=== PATIENT | male | born 1940 | race Caucasian/White ===

== ENCOUNTER 2022-09-08 14:10 | Observation (INO) | payer MEDICARE, OTHER ==
[2022-09-08] MEDS ORDERED: Sodium Chloride 0.9% 1000 ML 1,000 ML IV STA (14:46)
[2022-09-08] MEDS ORDERED: FEVERALL 650 MG PR ONE (14:49)
[2022-09-08] MEDS ORDERED: FEVERALL 650 MG ONE (14:51)
[2022-09-08] MEDS ORDERED: Sodium Chloride 0.9% 1000 ML 1,000 ML ONE (14:51)
[2022-09-08 14:55] LABS: Absolute Neutrophil Ct (ANC) 5.63 x10^3/uL (1.4-6.9); Basophil (Absolute #) 0.04 x10^3/uL (0-0.4); Eosinophil % 0.1 % (0.00-5.0); Eosinophil (Absolute #) 0.01 x10^3/uL (0-0.5); Hematocrit 44.6 % (42-50); Hemoglobin 14.8 g/dL (12.5-18.0); Lymphocyte (Absolute #) 1.05 x10^3/uL (1.0-4.6); Lymphocytes % 13.8 % (24.0-44.0); Mean Cell Volume 91.2 fL (78-100); Mean Corpuscular Hemoglobin 30.3 pg (26-32); Mean Corpuscular Hgb Concent. 33.2 g/dL (32-36); Mean Platelet Volume 10.2 fL (7.5-11.0); Monocyte (Absolute #) 0.81 x10^3/uL (0.0-1.3); Monocytes % 10.7 % (0.0-12.0); Neutrophil % 74.2 % (36.0-66.0); Platelet Count 154 x10^3/uL (150-450); Red Blood Count 4.89 x10^6/uL (4.1-5.6); Red Cell Distribution Width 12.1 % (11.5-14.0); White Blood Count 7.6 x10^3/uL (4.0-10.5)
--- NOTE | 2022-09-08 14:57 | ERPHSYRPT ---
- History of Present Illness Time Seen by Provider: 09/08/22 14:52 Source: patient Exam Limitations: no limitations Patient Subjective Stated Complaint: Per EMS patient had confusion and fever. Triage Nursing Assessment: Patient is alert to self only. Patient is calm, but confused. Patient heart rhythm sinus, heart sounds strong. Patients skin WDI, No shortness of breath, barrel chest. Bilateral bases diminished. Bilateral pulses +2 Physician History: Patient is an 82-year-old male presents to our ED via EMS for evaluation of altered mental status and fever. Symptoms were observed today. Patient is alert and responsive. Patient has no specific complaints. No chest pain or shortness of breath. No photophobia no neck pain no headache. No meningeal signs no nausea vomiting or diaphoresis. Symptoms are mild to moderate in intensity. No specific worsening improving factors. Patient voices no other complaints or concerns at this time. Portions of this note were created with voice recognition technology. There may be grammatical, spelling, punctuation or sound alike errors Timing/Duration: today Severity: moderate Modifying Factors: Improves With: nothing Associated Symptoms: denies symptoms Allergies/Adverse Reactions: No Known Drug Allergies Allergy (Unverified 09/08/22 14:38) Home Medications: Lansoprazole 30 mg PO BID 09/08/22 [History] Losartan/Hydrochlorothiazide [Hyzaar 50-12.5 Tablet] 1 tab PO DAILY 09/08/22 [History] Mirtazapine 45 mg PO HS 09/08/22 [History] Hx Tetanus, Diphtheria Vaccination/Date Given: No Hx Influenza Vaccination/Date Given: No Hx Pneumococcal Vaccination/Date Given: No Immunizations Up to Date: No Travel Risk - International Travel Have you traveled outside of the country in past 3 weeks: No - Coronavirus Screening Are you exhibiting any of the following symptoms?: Yes Symptoms: Fever Close contact with a COVID-19 positive Pt in past 14-21 Days: No - Vaccine Status Have you recieved a Covid-19 vaccination: No - Review of Systems Constitutional: No Symptoms, No Fever, No Chills Eyes: No Symptoms Ears, Nose, & Throat: No Symptoms Respiratory: No Symptoms, No Cough, No Dyspnea Cardiac: No Symptoms, No Chest Pain, No Edema, No Syncope Abdominal/Gastrointestinal: No Symptoms, No Abdominal Pain, No Nausea, No Vomiting, No Diarrhea Genitourinary Symptoms: No Symptoms, No Dysuria Musculoskeletal: No Symptoms, No Back Pain, No Neck Pain Skin: No Symptoms, No Rash Neurological: No Symptoms, No Dizziness, No Focal Weakness, No Sensory Changes Psychological: No Symptoms Endocrine: No Symptoms Hematologic/Lymphatic: No Symptoms Immunological/Allergic: No Symptoms All Other Systems: Reviewed and Negative - Past Medical History Pertinent Past Medical History: No (Poor Historian) Cardiac History: Hypertension - Past Surgical History Past Surgical History: No ([place], poor historian) Other Surgical History: Patient unable to communicate history. - Social History Smoking Status: Former smoker Drug Use: none Patient Lives Alone: No (lives with spouse.) - Nursing Vital Signs Nursing Vital Signs: Initial Vital Signs Temperature 103.1 F 09/08/22 14:18 Pulse Rate 90 09/08/22 14:18 Respiratory Rate 23 09/08/22 14:18 Blood Pressure 111/71 09/08/22 14:18 O2 Sat by Pulse Oximetry 93 L 09/08/22 14:18 Pain Scale Pain Intensity 0 - Physical Exam General Appearance: no apparent distress, alert, other (Patient appears somewhat confused answering inconsistently) Eye Exam: PERRL/EOMI, eyes nml inspection Ears, Nose, Throat Exam: normal ENT inspection, TMs normal, pharynx normal, moist mucous membranes Neck Exam: normal inspection, non-tender, supple, full range of motion Respiratory Exam: normal breath sounds, lungs clear, airway intact, No respiratory distress Cardiovascular Exam: regular rate/rhythm, normal heart sounds, normal peripheral pulses Gastrointestinal/Abdomen Exam: soft, normal bowel sounds, No tenderness, No mass Back Exam: normal inspection, normal range of motion, No CVA tenderness, No vertebral tenderness Extremity Exam: normal inspection, normal range of motion, pelvis stable Neurologic Exam: alert, oriented x 3, cooperative, normal mood/affect, nml cerebellar function, nml station & gait, sensation nml, No motor deficits Skin Exam: normal color, warm, dry, No rash Lymphatic Exam: No adenopathy SpO2 Interpretation: normal SpO2: 93 O2 Delivery: Room Air - Course Nursing assessment & vital signs reviewed: Yes - Radiology Exams Chest X-ray Interpretation: Teleradiologist Report (Lung granuloma, hiatal hernia otherwise negative chest x-ray with chronic features) - CT Exams Head CT Interpretation: Tele-radiologist Report (Global atrophy edema artifact from scalp shrapnel) Ordered Tests: Active Orders 24 hr Category Date Time Status Pharmacy Technician Assistant STAT Care 09/08/22 14:43 Active Catheter-Ashton Joshi STAT Care 09/08/22 14:41 Active IV Insertion STAT Care 09/08/22 14:41 Active IV Insertion-2nd Peripheral STAT Care 09/08/22 14:43 Active Oxygen-ED Only Nasal Cannula 2 lpm Care 09/08/22 14:57 Active Pulse Oximetry (ED) STAT Care 09/08/22 14:46 Active CHEST 1 VIEW (PORTABLE) Stat Exams 09/08/22 14:42 Completed HEAD WITHOUT CONTRAST [CT] Stat Exams 09/08/22 14:47 Completed BLOOD CULTURE Stat Lab 09/08/22 14:26 Received CBC W DIFF Stat Lab 09/08/22 14:20 Completed CK-Creatinine Phosphokinase Stat Lab 09/08/22 14:20 Completed CMP Stat Lab 09/08/22 14:20 Completed CULTURE,URINE Stat Lab 09/08/22 14:45 Received Lactic Acid Stat Lab 09/08/22 14:55 Completed UA W/RFX CULTURE Stat Lab 09/08/22 14:45 Completed Transfer Order Routine Transfer 09/08/22 Ordered Medication Summary Discontinued Medications Generic Name Dose Route Start Last Admin Trade Name Freq PRN Reason Stop Dose Admin Acetaminophen 975 mg 09/08/22 14:49 09/08/22 14:51 Acetaminophen 650 Mg Supp.Rect NJ 09/08/22 14:50 975 mg STAT ONE Administration Acetaminophen Confirm 09/08/22 14:51 Acetaminophen 650 Mg Supp.Rect Administered 09/08/22 14:52 Dose 1,300 mg .ROUTE .STK-MED ONE Sodium Chloride 1,000 mls @ 999 mls/hr 09/08/22 14:46 09/08/22 15:53 Sodium Chloride 0.9% 1000 Ml IV 09/08/22 15:46 Infused .Q1H1M STA Infusion Sodium Chloride Confirm 09/08/22 14:51 Sodium Chloride 0.9% 1000 Ml Administered 09/08/22 14:52 Dose 1,000 mls @ ud .ROUTE .STK-MED ONE Lab/Rad Data: Laboratory Result Diagrams 09/08/22 14:20 09/08/22 14:20 Laboratory Results 09/08/22 09/08/22 09/08/22 Range/Units 15:20 14:55 14:45 WBC (4.0-10.5) x10^3/uL RBC (4.1-5.6) x10^6/uL Hgb (12.5-18.0) g/dL Hct (42-50) % MCV (78-100) fL MCH (26-32) pg MCHC (32-36) g/dL RDW (11.5-14.0) % Plt Count (150-450) x10^3/uL MPV (7.5-11.0) fL Gran % (36.0-66.0) % Immature Gran % (Auto) (0.00-0.4) % Nucleat RBC Rel Count (0.00-0.1) % Eos # (Auto) (0-0.5) x10^3/uL Immature Gran # (Auto) (0.00-0.03) x10^3u/L Absolute Lymphs (auto) (1.0-4.6) x10^3/uL Absolute Monos (auto) (0.0-1.3) x10^3/uL Absolute Nucleated RBC (0.00-0.01) x10^3u/L Lymphocytes % (24.0-44.0) % Monocytes % (0.0-12.0) % Eosinophils % (0.00-5.0) % Basophils % (0.0-0.4) % Absolute Granulocytes (1.4-6.9) x10^3/uL Basophils # (0-0.4) x10^3/uL Sodium (137-145) mmol/L Potassium (3.5-5.1) mmol/L Chloride (98-107) mmol/L Carbon Dioxide (22-30) mmol/L Anion Gap (5-15) MEQ/L BUN (9-20) mg/dL Creatinine (0.66-1.25) mg/dL Estimated GFR ML/MIN Glucose (74-106) mg/dL Lactic Acid 1.1 (0.4-2.0) Calcium (8.4-10.2) mg/dL Total Bilirubin (0.2-1.3) mg/dL AST (17-59) U/L ALT (0-50) U/L Alkaline Phosphatase (38-126) U/L Creatine Kinase (55-170) U/L Serum Total Protein (6.3-8.2) g/dL Albumin (3.5-5.0) g/dL Urinalys Dipstick Clnc MAIN LAB Urine Color YELLOW (YELLOW) Urine Appearance CLEAR (CLEAR) Urine pH 5.5 (5-6) Ur Specific [place] >=1.030 A (1.005-1.025) POC Urine Protein Conf TRACE A (Negative) Urine Ketones TRACE A (NEGATIVE) Urine Nitrite NEGATIVE (NEGATIVE) Urine Bilirubin NEGATIVE (NEGATIVE) Urine Urobilinogen 1 A (0-1) mg/dL Urine Leukocytes NEGATIVE (NEGATIVE) Urine WBC (Auto) 0-2 (0-5) /HPF Urine RBC (Auto) 11-15 A (0-2) /HPF U Epithel Cells (Auto) NONE (FEW) /HPF Urine Bacteria (Auto) NONE SEEN (NEGATIVE) /HPF Urine RBC SMALL A (0-5) Alberto/ul Urine Mucus (Auto) SLIGHT A (NEGATIVE) /HPF Ur Culture Indicated? ORDERED SEPARATELY Urine Glucose NEGATIVE (NEGATIVE) mg/dL Influenza Type A Ag (NEGATIVE) Influenza Type B Ag (NEGATIVE) RSV (PCR) (Negative) SARS-CoV-2 (PCR) (NEGATIVE) Group A Strep Antibody NOT DETECTED (NEGATIVE) 09/08/22 09/08/22 09/08/22 Range/Units 14:30 14:20 14:20 WBC 7.6 (4.0-10.5) x10^3/uL RBC 4.89 (4.1-5.6) x10^6/uL Hgb 14.8 (12.5-18.0) g/dL Hct 44.6 (42-50) % MCV 91.2 (78-100) fL MCH 30.3 (26-32) pg MCHC 33.2 (32-36) g/dL RDW 12.1 (11.5-14.0) % Plt Count 154 (150-450) x10^3/uL MPV 10.2 (7.5-11.0) fL Gran % 74.2 H (36.0-66.0) % Immature Gran % (Auto) 0.7 H (0.00-0.4) % Nucleat RBC Rel Count 0.0 (0.00-0.1) % Eos # (Auto) 0.01 (0-0.5) x10^3/uL Immature Gran # (Auto) 0.05 H (0.00-0.03) x10^3u/L Absolute Lymphs (auto) 1.05 (1.0-4.6) x10^3/uL Absolute Monos (auto) 0.81 (0.0-1.3) x10^3/uL Absolute Nucleated RBC 0.00 (0.00-0.01) x10^3u/L Lymphocytes % 13.8 L (24.0-44.0) % Monocytes % 10.7 (0.0-12.0) % Eosinophils % 0.1 (0.00-5.0) % Basophils % 0.5 (0.0-0.4) % Absolute Granulocytes 5.63 (1.4-6.9) x10^3/uL Basophils # 0.04 (0-0.4) x10^3/uL Sodium 137 (137-145) mmol/L Potassium 3.7 (3.5-5.1) mmol/L Chloride 99 (98-107) mmol/L Carbon Dioxide 31 H (22-30) mmol/L Anion Gap 10.6 (5-15) MEQ/L BUN 18 (9-20) mg/dL Creatinine 1.09 (0.66-1.25) mg/dL Estimated GFR > 60.0 ML/MIN Glucose 120 H (74-106) mg/dL Lactic Acid (0.4-2.0) Calcium 8.9 (8.4-10.2) mg/dL Total Bilirubin 1.10 (0.2-1.3) mg/dL AST 22 (17-59) U/L ALT 18 (0-50) U/L Alkaline Phosphatase 51 (38-126) U/L Creatine Kinase 41 L (55-170) U/L Serum Total Protein 7.3 (6.3-8.2) g/dL Albumin 4.2 (3.5-5.0) g/dL Urinalys Dipstick Clnc Urine Color (YELLOW) Urine Appearance (CLEAR) Urine pH (5-6) Ur Specific [place] (1.005-1.025) POC Urine Protein Conf (Negative) Urine Ketones (NEGATIVE) Urine Nitrite (NEGATIVE) Urine Bilirubin (NEGATIVE) Urine Urobilinogen (0-1) mg/dL Urine Leukocytes (NEGATIVE) Urine WBC (Auto) (0-5) /HPF Urine RBC (Auto) (0-2) /HPF U Epithel Cells (Auto) (FEW) /HPF Urine Bacteria (Auto) (NEGATIVE) /HPF Urine RBC (0-5) Alberto/ul Urine Mucus (Auto) (NEGATIVE) /HPF Ur Culture Indicated? Urine Glucose (NEGATIVE) mg/dL Influenza Type A Ag NEGATIVE (NEGATIVE) Influenza Type B Ag NEGATIVE (NEGATIVE) RSV (PCR) NEGATIVE (Negative) SARS-CoV-2 (PCR) POSITIVE A (NEGATIVE) Group A Strep Antibody (NEGATIVE) - Progress Progress: improved Progress Note: I discussed family the need for lumbar puncture daughter at bedside declined along with patient. I spoke to Dr. Ledbetter who also advised against a lumbar puncture. Risks and benefits of LP discussed with patient and daughter. In spite of the risks they decline a lumbar puncture. Dr. Ledbetter accepts admission to observation. Plan of care discussed with patient and family. They agree to admission [facility] for further evaluation and treatment. Dictation disclaimer 09/08/22 16:22 Counseled pt/family regarding: lab results, diagnosis, rad results - Departure Departure Disposition: Observation Clinical Impression: COVID, AMS (altered mental status), Microscopic hematuria, Delirium, Lung granuloma, Hiatal hernia Condition: Stable Critical Care Time: No Referrals: FEDE LEDBETTER MD [Primary Care Provider] - Follow up/PCP as directed
[2022-09-08 15:03] LABS: ALBUMIN 4.2 g/dL (3.5-5.0); ALKALINE PHOSPHATASE 51 U/L (38-126); ANION GAP 10.6 MEQ/L (5-15); BLOOD UREA NITROGEN 18 mg/dL (9-20); CHLORIDE 99 mmol/L (98-107); CK-Creatinine Phosphokinase 41 U/L (55-170); Calcium 8.9 mg/dL (8.4-10.2); Carbon Dioxide 31 mmol/L (22-30); Creatinine 1 1.09 mg/dL (0.66-1.25); EST GLOMERULAR FILTRATION RATE > 60.0 ML/MIN; Glucose 120 mg/dL (74-106); Potassium 3.7 mmol/L (3.5-5.1); SGOT/AST 22 U/L (17-59); SGPT/ALT 18 U/L (0-50); SODIUM 137 mmol/L (137-145); Total Protein 7.3 g/dL (6.3-8.2)
--- NOTE | 2022-09-08 15:10 | XRAY ---
Indication: Dyspnea. Comparison: None Portable chest clear with incidental tiny calcified granulomas. Heart not enlarged with CT proven large hiatal hernia and intrathoracic stomach. Bony thorax intact. Impression: Nonacute chest with chronic features.
[2022-09-08 15:23] LABS: Mucus SLIGHT /HPF (NEGATIVE); WBC 0-2 /HPF (0-5)
[2022-09-08 15:24] LABS: Appearance CLEAR (CLEAR); Bilirubin NEGATIVE (NEGATIVE); Glucose NEGATIVE (NEGATIVE); Ketones TRACE (NEGATIVE); Ph 5.5 (5-6); Protein,Urine Dip TRACE (Negative); RBC SMALL Ery/ul (0-5); Specific Gravity >=1.030 (1.005-1.025)
[2022-09-08 15:25] LABS: Dipstick done @ ? MAIN LAB; Nitrite NEGATIVE (NEGATIVE); Urobilinogen 1 mg/dL (0-1)
[2022-09-08 15:28] LABS: Bacteria NONE SEEN /HPF (NEGATIVE)
[2022-09-08 15:29] LABS: Urine Cultured Indicated? ORDERED SEPARATELY
--- NOTE | 2022-09-08 15:30 | XRAY ---
Indication: Acute mental status change. Multiple contiguous images obtained through the head without contrast. Comparison: None Metallic shrapnel in the right face/right frontal scalp demonstrates beam artifact. Age-appropriate global atrophy and mild periventricular degenerative micro-ischemia bilaterally. No acute intracranial hemorrhage, abnormal extra-axial fluid collection, or mass effect. Fourth ventricle is midline without hydrocephalus. Bony calvarium intact. Visualized paranasal sinuses and mastoid air cells are clear. Impression: Beam artifact from right facial and right frontal scalp shrapnel. Grossly nonacute senile brain.
[2022-09-08 15:37] LABS: INFLUENZA A NEGATIVE (NEGATIVE); INFLUENZA B NEGATIVE (NEGATIVE); RESPIRATORY SYNCTIAL VIRUS NEGATIVE (Negative)
[2022-09-08 15:55] LABS: SARS-CoV-2 Xpert Express POSITIVE (NEGATIVE)
[2022-09-08] MEDS ORDERED: TYLENOL 325 MG PO PRN (17:01)
--- NOTE | 2022-09-08 17:50 | PCM.HP ---
History of Present Illness - Chief Complaint Chief Complaint: delirium for 1-2 days History of Present Illness: is a 82 year old male presents to our ED via EMS for evaluation of altered mental status and fever. Symptoms were observed today. Patient is alert and responsive. Patient has no specific complaints. No chest pain or shortness of breath. No photophobia no neck pain no headache. No meningeal signs no nausea vomiting or diaphoresis. Symptoms are mild to moderate in intensity. No specific worsening improving factors. Patient voices no other complaints or concerns at this time. Timing/Duration: today Severity: moderate Modifying Factors: Improves With: nothing Associated Symptoms: denies symptoms - Review of Systems Constitutional: Lethargy, Weakness, No Fever, No Chills Eyes: No Symptoms Ears, Nose, & Throat: No Symptoms Respiratory: No Cough, No Short Of Breath Cardiac: No Chest Pain, No Edema, No Syncope Abdominal/Gastrointestinal: No Abdominal Pain, No Nausea, No Vomiting, No Diarrhea Genitourinary Symptoms: No Dysuria Musculoskeletal: No Back Pain, No Neck Pain Skin: No Rash Neurological: Lethargy, Other (delirium), No Dizziness, No Focal Weakness, No Sensory Changes Psychological: No Symptoms Endocrine: No Symptoms Hematologic/Lymphatic: No Symptoms Immunological/Allergic: No Symptoms Medications & Allergies Home Medications: Home Medication List Lansoprazole 30 mg PO BID 09/08/22 [History Confirmed 09/08/22] Losartan/Hydrochlorothiazide [Hyzaar 50-12.5 Tablet] 1 tab PO DAILY 09/08/22 [History Confirmed 09/08/22] Mirtazapine 45 mg PO HS 09/08/22 [History Confirmed 09/08/22] Allergies/Adverse Reactions: Allergies Allergy/AdvReac Type Severity Reaction Status Date / Time No Known Drug Allergies Allergy Unverified 09/08/22 14:38 - Past Medical History Past Medical History: No (Poor Historian) Neurological History: No Pertinent History ENT History: No Pertinent History Cardiac History: Hypertension Respiratory History: No Pertinent History Endocrine Medical History: No Pertinent History Musculoskelatal History: No Pertinent History GI Medical History: GERD History: No Pertinent History Pyscho-Social History: Depression Male Reproductive Disorders: No Pertinent History - Past Surgical History Past Surgical History: No (unkown, poor historian) Neuro Surgical History: No Pertinent History Cardiac History: No Pertinent History Respiratory Surgery: No Pertinent History GI Surgical History: No Pertinent History Genitourinary Surgical Hx: No Pertinent History Musculskeletal Surgical Hx: No Pertinent History Male Surgical History: No Pertinent History Other Surgical History: Patient unable to communicate history. - Social History Smoking Status: Former smoker Alcohol: None Drug Use: none - Physical Exam Vital Signs: Vital Signs - 24 hr Temp Pulse Resp BP Pulse Ox 09/08/22 16:54 97.3 F 69 18 111/64 95 09/08/22 16:31 93 L 09/08/22 16:28 101.1 F 70 18 103/54 98 09/08/22 16:00 101.3 F 74 20 96/56 95 09/08/22 15:03 103.1 F 84 18 123/63 96 09/08/22 14:56 96 09/08/22 14:18 103.1 F 90 23 111/71 93 L General Appearance: no apparent distress, alert Neurologic Exam: alert, oriented x 3, cooperative, normal mood/affect, nml cerebellar function, nml station & gait, sensation nml, disoriented, confusion, No motor deficits Eye Exam: PERRL/EOMI, eyes nml inspection Ears, Nose, Throat Exam: normal ENT inspection, TMs normal, pharynx normal, moist mucous membranes Neck Exam: normal inspection, non-tender, supple, full range of motion Respiratory Exam: normal breath sounds, lungs clear, No respiratory distress Cardiovascular Exam: regular rate/rhythm, normal heart sounds, normal peripheral pulses Gastrointestinal/Abdomen Exam: soft, normal bowel sounds, No tenderness, No mass Back Exam: normal inspection, normal range of motion, No CVA tenderness, No vertebral tenderness Extremity Exam: normal inspection, normal range of motion, pelvis stable Skin Exam: normal color, warm, dry, No rash Lymphatic Exam: No adenopathy Results - Labs Lab/Micro Results: Lab Results-Last 24 Hours 09/08/22 09/08/22 09/08/22 Range/Units 14:20 14:20 14:30 WBC 7.6 (4.0-10.5) x10^3/uL RBC 4.89 (4.1-5.6) x10^6/uL Hgb 14.8 (12.5-18.0) g/dL Hct 44.6 (42-50) % MCV 91.2 (78-100) fL MCH 30.3 (26-32) pg MCHC 33.2 (32-36) g/dL RDW 12.1 (11.5-14.0) % Plt Count 154 (150-450) x10^3/uL MPV 10.2 (7.5-11.0) fL Gran % 74.2 H (36.0-66.0) % Immature Gran % (Auto) 0.7 H (0.00-0.4) % Nucleat RBC Rel Count 0.0 (0.00-0.1) % Eos # (Auto) 0.01 (0-0.5) x10^3/uL Immature Gran # (Auto) 0.05 H (0.00-0.03) x10^3u/L Absolute Lymphs (auto) 1.05 (1.0-4.6) x10^3/uL Absolute Monos (auto) 0.81 (0.0-1.3) x10^3/uL Absolute Nucleated RBC 0.00 (0.00-0.01) x10^3u/L Lymphocytes % 13.8 L (24.0-44.0) % Monocytes % 10.7 (0.0-12.0) % Eosinophils % 0.1 (0.00-5.0) % Basophils % 0.5 (0.0-0.4) % Absolute Granulocytes 5.63 (1.4-6.9) x10^3/uL Basophils # 0.04 (0-0.4) x10^3/uL Sodium 137 (137-145) mmol/L Potassium 3.7 (3.5-5.1) mmol/L Chloride 99 (98-107) mmol/L Carbon Dioxide 31 H (22-30) mmol/L Anion Gap 10.6 (5-15) MEQ/L BUN 18 (9-20) mg/dL Creatinine 1.09 (0.66-1.25) mg/dL Estimated GFR > 60.0 ML/MIN Glucose 120 H (74-106) mg/dL Lactic Acid (0.4-2.0) Calcium 8.9 (8.4-10.2) mg/dL Total Bilirubin 1.10 (0.2-1.3) mg/dL AST 22 (17-59) U/L ALT 18 (0-50) U/L Alkaline Phosphatase 51 (38-126) U/L Creatine Kinase 41 L (55-170) U/L Serum Total Protein 7.3 (6.3-8.2) g/dL Albumin 4.2 (3.5-5.0) g/dL Urinalys Dipstick Clnc Urine Color (YELLOW) Urine Appearance (CLEAR) Urine pH (5-6) Ur Specific Shell (1.005-1.025) POC Urine Protein Conf (Negative) Urine Ketones (NEGATIVE) Urine Nitrite (NEGATIVE) Urine Bilirubin (NEGATIVE) Urine Urobilinogen (0-1) mg/dL Urine Leukocytes (NEGATIVE) Urine WBC (Auto) (0-5) /HPF Urine RBC (Auto) (0-2) /HPF U Epithel Cells (Auto) (FEW) /HPF Urine Bacteria (Auto) (NEGATIVE) /HPF Urine RBC (0-5) Alberto/ul Urine Mucus (Auto) (NEGATIVE) /HPF Ur Culture Indicated? Urine Glucose (NEGATIVE) mg/dL Influenza Type A Ag NEGATIVE (NEGATIVE) Influenza Type B Ag NEGATIVE (NEGATIVE) RSV (PCR) NEGATIVE (Negative) SARS-CoV-2 (PCR) POSITIVE A (NEGATIVE) Group A Strep Antibody (NEGATIVE) 09/08/22 09/08/22 09/08/22 Range/Units 14:45 14:55 15:20 WBC (4.0-10.5) x10^3/uL RBC (4.1-5.6) x10^6/uL Hgb (12.5-18.0) g/dL Hct (42-50) % MCV (78-100) fL MCH (26-32) pg MCHC (32-36) g/dL RDW (11.5-14.0) % Plt Count (150-450) x10^3/uL MPV (7.5-11.0) fL Gran % (36.0-66.0) % Immature Gran % (Auto) (0.00-0.4) % Nucleat RBC Rel Count (0.00-0.1) % Eos # (Auto) (0-0.5) x10^3/uL Immature Gran # (Auto) (0.00-0.03) x10^3u/L Absolute Lymphs (auto) (1.0-4.6) x10^3/uL Absolute Monos (auto) (0.0-1.3) x10^3/uL Absolute Nucleated RBC (0.00-0.01) x10^3u/L Lymphocytes % (24.0-44.0) % Monocytes % (0.0-12.0) % Eosinophils % (0.00-5.0) % Basophils % (0.0-0.4) % Absolute Granulocytes (1.4-6.9) x10^3/uL Basophils # (0-0.4) x10^3/uL Sodium (137-145) mmol/L Potassium (3.5-5.1) mmol/L Chloride (98-107) mmol/L Carbon Dioxide (22-30) mmol/L Anion Gap (5-15) MEQ/L BUN (9-20) mg/dL Creatinine (0.66-1.25) mg/dL Estimated GFR ML/MIN Glucose (74-106) mg/dL Lactic Acid 1.1 (0.4-2.0) Calcium (8.4-10.2) mg/dL Total Bilirubin (0.2-1.3) mg/dL AST (17-59) U/L ALT (0-50) U/L Alkaline Phosphatase (38-126) U/L Creatine Kinase (55-170) U/L Serum Total Protein (6.3-8.2) g/dL Albumin (3.5-5.0) g/dL Urinalys Dipstick Clnc MAIN LAB Urine Color YELLOW (YELLOW) Urine Appearance CLEAR (CLEAR) Urine pH 5.5 (5-6) Ur Specific Shell >=1.030 A (1.005-1.025) POC Urine Protein Conf TRACE A (Negative) Urine Ketones TRACE A (NEGATIVE) Urine Nitrite NEGATIVE (NEGATIVE) Urine Bilirubin NEGATIVE (NEGATIVE) Urine Urobilinogen 1 A (0-1) mg/dL Urine Leukocytes NEGATIVE (NEGATIVE) Urine WBC (Auto) 0-2 (0-5) /HPF Urine RBC (Auto) 11-15 A (0-2) /HPF U Epithel Cells (Auto) NONE (FEW) /HPF Urine Bacteria (Auto) NONE SEEN (NEGATIVE) /HPF Urine RBC SMALL A (0-5) Alberto/ul Urine Mucus (Auto) SLIGHT A (NEGATIVE) /HPF Ur Culture Indicated? ORDERED SEPARATELY Urine Glucose NEGATIVE (NEGATIVE) mg/dL Influenza Type A Ag (NEGATIVE) Influenza Type B Ag (NEGATIVE) RSV (PCR) (Negative) SARS-CoV-2 (PCR) (NEGATIVE) Group A Strep Antibody NOT DETECTED (NEGATIVE) - Radiology Impressions Radiology Exams & Impressions: Radiology Procedures Category Date Time Status CHEST 1 VIEW (PORTABLE) Stat Exams 09/08/22 14:42 Completed HEAD WITHOUT CONTRAST [CT] Stat Exams 09/08/22 14:47 Completed - Other Procedures and Tests Respiratory Therapy 09/08/22 17:01 Respiratory Therapy Consult ROUTINE 09/08/22 17:45 Oxygen NASAL CANNULA 2 lpm Assessment/Plan (1) AMS (altered mental status) Current Visit: Yes Status: Acute Qualifiers: Altered mental status type: delirium Qualified Code(s): R41.0 - Disorientation, unspecified Code(s): R41.82 - ALTERED MENTAL STATUS, UNSPECIFIED (2) COVID Current Visit: Yes Status: Acute Assessment & Plan: Allergies Allergy/AdvReac Type Severity Reaction Status Date / Time No Known Drug Allergies Allergy Unverified 09/08/22 14:38 Vital Signs (Last 24 hours) Temp Pulse Resp BP Pulse Ox 09/08/22 16:54 97.3 F 69 18 111/64 95 09/08/22 16:31 93 L 09/08/22 16:28 101.1 F 70 18 103/54 98 09/08/22 16:00 101.3 F 74 20 96/56 95 09/08/22 15:03 103.1 F 84 18 123/63 96 09/08/22 14:56 96 09/08/22 14:18 103.1 F 90 23 111/71 93 L Home Medications Medication Instructions Recorded Confirmed Last Taken Type Lansoprazole 30 mg PO BID 09/08/22 09/08/22 09/08/22 History Losartan/Hydrochlorothiazide 1 tab PO DAILY 09/08/22 09/08/22 09/08/22 History [Hyzaar 50-12.5 Tablet] Mirtazapine 45 mg PO HS 09/08/22 09/08/22 09/07/22 History Current Medications Generic Name Dose Route Start Last Admin Trade Name Freq PRN Reason Stop Dose Admin Acetaminophen 650 mg 09/08/22 17:01 Acetaminophen 325 Mg Tablet PO 10/08/22 17:00 Q4H PRN PRN PAIN AND/OR FEVER Enoxaparin Sodium 40 mg 09/08/22 18:00 Enoxaparin Sodium 40 Mg/0.4 Ml Syringe SQ 10/08/22 17:59 DAILY KWAKU Sodium Chloride 1,000 mls @ 100 mls/hr 09/08/22 17:01 Sodium Chloride 0.9% 1000 Ml IV 10/08/22 17:00 .Q10H KWAKU Discontinued Medications Generic Name Dose Route Start Last Admin Trade Name Freq PRN Reason Stop Dose Admin Acetaminophen 975 mg 09/08/22 14:49 09/08/22 14:51 Acetaminophen 650 Mg Supp.Rect IA 09/08/22 14:50 975 mg STAT ONE Administration Acetaminophen Confirm 09/08/22 14:51 Acetaminophen 650 Mg Supp.Rect Administered 09/08/22 14:52 Dose 1,300 mg .ROUTE .STK-MED ONE Sodium Chloride 1,000 mls @ 999 mls/hr 09/08/22 14:46 09/08/22 15:53 Sodium Chloride 0.9% 1000 Ml IV 09/08/22 15:46 Infused .Q1H1M STA Infusion Sodium Chloride Confirm 09/08/22 14:51 Sodium Chloride 0.9% 1000 Ml Administered 09/08/22 14:52 Dose 1,000 mls @ ud .ROUTE .STK-MED ONE Intake & Output (Last 24 hours) 09/06/22 09/07/22 09/08/22 09/09/22 11:59 11:59 11:59 11:59 Weight 92.7 kg Microbiology Results (Last 24 hours) 09/08/22 14:45 Catherized Urine Culture - Pending 09/08/22 14:26 Blood Blood Culture Gram Stain - Pending 09/08/22 14:26 Blood Blood Culture - Pending 09/08/22 14:10 Blood Blood Culture Gram Stain - Pending 09/08/22 14:10 Blood Blood Culture - Pending Laboratory Results (Last 24 hours) 09/08/22 09/08/22 09/08/22 15:20 14:55 14:45 WBC RBC Hgb Hct MCV MCH MCHC RDW Plt Count MPV Gran % Immature Gran % (Auto) Nucleat RBC Rel Count Eos # (Auto) Immature Gran # (Auto) Absolute Lymphs (auto) Absolute Monos (auto) Absolute Nucleated RBC Lymphocytes % Monocytes % Eosinophils % Basophils % Absolute Granulocytes Basophils # Sodium Potassium Chloride Carbon Dioxide Anion Gap BUN Creatinine Estimated GFR Glucose Lactic Acid 1.1 Calcium Total Bilirubin AST ALT Alkaline Phosphatase Creatine Kinase Serum Total Protein Albumin Urinalys Dipstick Clnc MAIN LAB Urine Color YELLOW Urine Appearance CLEAR Urine pH 5.5 Ur Specific Shell >=1.030 A POC Urine Protein Conf TRACE A Urine Ketones TRACE A Urine Nitrite NEGATIVE Urine Bilirubin NEGATIVE Urine Urobilinogen 1 A Urine Leukocytes NEGATIVE Urine WBC (Auto) 0-2 Urine RBC (Auto) 11-15 A U Epithel Cells (Auto) NONE Urine Bacteria (Auto) NONE SEEN Urine RBC SMALL A Urine Mucus (Auto) SLIGHT A Ur Culture Indicated? ORDERED SEPARATELY Urine Glucose NEGATIVE Influenza Type A Ag Influenza Type B Ag RSV (PCR) SARS-CoV-2 (PCR) Group A Strep Antibody NOT DETECTED 09/08/22 09/08/22 09/08/22 14:30 14:20 14:20 WBC 7.6 RBC 4.89 Hgb 14.8 Hct 44.6 MCV 91.2 MCH 30.3 MCHC 33.2 RDW 12.1 Plt Count 154 MPV 10.2 Gran % 74.2 H Immature Gran % (Auto) 0.7 H Nucleat RBC Rel Count 0.0 Eos # (Auto) 0.01 Immature Gran # (Auto) 0.05 H Absolute Lymphs (auto) 1.05 Absolute Monos (auto) 0.81 Absolute Nucleated RBC 0.00 Lymphocytes % 13.8 L Monocytes % 10.7 Eosinophils % 0.1 Basophils % 0.5 Absolute Granulocytes 5.63 Basophils # 0.04 Sodium 137 Potassium 3.7 Chloride 99 Carbon Dioxide 31 H Anion Gap 10.6 BUN 18 Creatinine 1.09 Estimated GFR > 60.0 Glucose 120 H Lactic Acid Calcium 8.9 Total Bilirubin 1.10 AST 22 ALT 18 Alkaline Phosphatase 51 Creatine Kinase 41 L Serum Total Protein 7.3 Albumin 4.2 Urinalys Dipstick Clnc Urine Color Urine Appearance Urine pH Ur Specific Shell POC Urine Protein Conf Urine Ketones Urine Nitrite Urine Bilirubin Urine Urobilinogen Urine Leukocytes Urine WBC (Auto) Urine RBC (Auto) U Epithel Cells (Auto) Urine Bacteria (Auto) Urine RBC Urine Mucus (Auto) Ur Culture Indicated? Urine Glucose Influenza Type A Ag NEGATIVE Influenza Type B Ag NEGATIVE RSV (PCR) NEGATIVE SARS-CoV-2 (PCR) POSITIVE A Group A Strep Antibody Orders (Last 24 hours) Category Date Time Status Bedrest ROUTINE Activity 09/08/22 17:01 Active Skilled Nursing Facilities Professional ROUTINE Care 09/08/22 17:01 Active Skilled Nursing Facilities Professional STAT Care 09/08/22 14:43 Completed Catheter-[place] Joshi STAT Care 09/08/22 14:41 Completed IV Insertion STAT Care 09/08/22 14:41 Completed IV Insertion-2nd Peripheral STAT Care 09/08/22 14:43 Completed Isolation, Initiate & Maintain Q6H Care 09/08/22 17:01 Active Neuro Checks Q4H Care 09/08/22 17:01 Active Oxygen-ED Only Nasal Cannula 2 lpm Care 09/08/22 14:[address] in Observation ROUTINE Care 09/08/22 17:01 Active Pulse Oximetry (ED) STAT Care 09/08/22 14:46 Completed Telemetry q4h Care 09/08/22 17:01 Active Consistent Carbohydrate Diet 2000 Calorie Diet 09/08/22 Dinner Active CHEST 1 VIEW (PORTABLE) Stat Exams 09/08/22 14:42 Completed HEAD WITHOUT CONTRAST [CT] Stat Exams 09/08/22 14:47 Completed BLOOD CULTURE Stat Lab 09/08/22 14:26 Received CBC W DIFF AM.LAB Lab 09/09/22 04:00 Ordered CBC W DIFF Stat Lab 09/08/22 14:20 Completed CK-Creatinine Phosphokinase Stat Lab 09/08/22 14:20 Completed CMP AM.LAB Lab 09/09/22 04:00 Ordered CMP Stat Lab 09/08/22 14:20 Completed COVID/FLU/RSV Panel Stat Lab 09/08/22 14:30 Completed CULTURE,URINE Stat Lab 09/08/22 14:45 Received Group A Strep Stat Lab 09/08/22 15:20 Completed Lactic Acid Stat Lab 09/08/22 14:55 Completed UA W/RFX CULTURE Stat Lab 09/08/22 14:45 Completed Acetaminophen 325 mg [Tylenol 325 mg] Med 09/08/22 17:01 Active 650 mg PO Q4H PRN PRN Acetaminophen 650 mg [Feverall 650 mg] Med 09/08/22 14:51 Discontinued 1,300 mg .ROUTE .STK-MED ONE Acetaminophen 650 mg [Feverall 650 mg] Med 09/08/22 14:49 Discontinued 975 mg IA STAT ONE Enoxaparin Sodium [Enoxaparin Sodium] Med 09/08/22 18:00 Active 40 mg SQ DAILY NaCl 0.9% 1000 ml [Sodium Chloride 0.9% 1000 ML] 1,000 Med 09/08/22 14:51 Discontinued ml .ROUTE UD NaCl 0.9% 1000 ml [Sodium Chloride 0.9% 1000 ML] 1,000 Med 09/08/22 17:01 Active ml IV 100 mls/hr NaCl 0.9% 1000 ml [Sodium Chloride 0.9% 1000 ML] 1,000 Med 09/08/22 14:46 Discontinued ml IV 999 mls/hr Oxygen NASAL CANNULA 2 lpm RT 09/08/22 17:45 Active Pulse Oximetry ROUTINE RT 09/08/22 17:45 Active Respiratory Therapy Consult ROUTINE RT 09/08/22 17:01 Active Transfer Order Routine Transfer 09/08/22 Completed Code(s): U07.1 - COVID-19 (3) Delirium Current Visit: Yes Status: Acute Code(s): R41.0 - DISORIENTATION, UNSPECIFIED
[2022-09-08] MEDS: ENOXAPARIN SODIUM SQ SCH (18:29)
[2022-09-08] MEDS: Sodium Chloride 0.9% 1000 ML 1,000 ML IV SCH (18:29)
[2022-09-08] MEDS ORDERED: MIRTAZAPINE PO SCH (22:00)
[2022-09-08] MEDS ORDERED: Aricept 10 MG PO SCH (22:00)
[2022-09-08] MEDS ORDERED: REMERON 30 MG ONE (23:00)
[2022-09-09] MEDS: Sodium Chloride 0.9% 1000 ML 1,000 ML IV SCH (03:36)
[2022-09-09 05:45] LABS: Absolute Neutrophil Ct (ANC) 4.34 x10^3/uL (1.4-6.9); Basophil (Absolute #) 0.04 x10^3/uL (0-0.4); Eosinophil % 0.3 % (0.00-5.0); Eosinophil (Absolute #) 0.02 x10^3/uL (0-0.5); Hematocrit 39.6 % (42-50); Hemoglobin 12.9 g/dL (12.5-18.0); Lymphocyte (Absolute #) 1.37 x10^3/uL (1.0-4.6); Lymphocytes % 21.5 % (24.0-44.0); Mean Cell Volume 94.1 fL (78-100); Mean Corpuscular Hemoglobin 30.6 pg (26-32); Mean Corpuscular Hgb Concent. 32.6 g/dL (32-36); Monocyte (Absolute #) 0.56 x10^3/uL (0.0-1.3); Monocytes % 8.8 % (0.0-12.0); Neutrophil % 68.2 % (36.0-66.0); Platelet Count 121 x10^3/uL (150-450); Red Blood Count 4.21 x10^6/uL (4.1-5.6); Red Cell Distribution Width 12.5 % (11.5-14.0); White Blood Count 6.4 x10^3/uL (4.0-10.5)
[2022-09-09 07:40] LABS: ALBUMIN 3.4 g/dL (3.5-5.0); ALKALINE PHOSPHATASE 45 U/L (38-126); ANION GAP 7.1 MEQ/L (5-15); BLOOD UREA NITROGEN 18 mg/dL (9-20); CHLORIDE 102 mmol/L (98-107); Carbon Dioxide 29 mmol/L (22-30); EST GLOMERULAR FILTRATION RATE > 60.0 ML/MIN; Glucose 108 mg/dL (74-106); Potassium 3.6 mmol/L (3.5-5.1); SGOT/AST 20 U/L (17-59); SGPT/ALT 15 U/L (0-50); SODIUM 135 mmol/L (137-145); Total Protein 6.1 g/dL (6.3-8.2)
[2022-09-09] MEDS: ENOXAPARIN SODIUM SQ SCH (08:28)
[2022-09-09] MEDS ORDERED: LOSARTAN PO SCH (10:00)
[2022-09-09] MEDS ORDERED: Cozaar 50 MG PO SCH (10:00)
[2022-09-09] MEDS ORDERED: NON-FORMULARY ITEM (Lansoprazole [Lansoprazole] 30 MG Capsule.Dr) PO SCH (10:00)
[2022-09-09] MEDS ORDERED: hydroDIURIL 25 MG PO SCH (10:00)
[2022-09-09] MEDS ORDERED: HYDROCHLOROTHIAZIDE PO SCH (10:00)
[2022-09-09] MEDS ORDERED: Protonix 40MG Tablet PO SCH (10:00)
[2022-09-09 11:25] VITALS: BP 129/60; PULSE 79; O2SAT 92
--- NOTE | 2022-09-10 07:26 | PCM.DS ---
Discharge Summary Date of Admission: 09/08/22 16:40 Admitting Physician: FEDE LEDBETTER Primary Care Provider: FEDE LEDBETTER Allergies Allergies No Known Drug Allergies Allergy (Unverified 09/08/22 14:38) Hospital Summary - Hospital Course Hospital Course: Chief Complaint Diagnosis delirium for 1-2 days Allergies Allergy/AdvReac Type Severity Reaction Status Date / Time No Known Drug Allergies Allergy Unverified 09/08/22 14:38 Vital Signs (Last 24 hours) Temp Pulse Resp BP Pulse Ox 09/09/22 12:00 19 09/09/22 11:25 100.7 F 79 18 129/60 92 L 09/09/22 10:45 99.0 F 09/09/22 10:00 72 18 94 L 09/09/22 08:00 19 Home Medications Medication Instructions Recorded Confirmed Last Taken Type Donepezil HCl 10 mg [Aricept 10 10 mg PO HS 09/08/22 09/08/22 09/07/22 21:00 History MG] Lansoprazole 30 mg PO BID 09/08/22 09/08/22 09/08/22 History Losartan/Hydrochlorothiazide 1 tab PO DAILY 09/08/22 09/08/22 09/08/22 History [Hyzaar 50-12.5 Tablet] Mirtazapine 45 mg PO HS 09/08/22 09/08/22 09/07/22 History Current Medications Discontinued Medications Generic Name Dose Route Start Last Admin Trade Name Freq PRN Reason Stop Dose Admin Acetaminophen 975 mg 09/08/22 14:49 09/08/22 14:51 Acetaminophen 650 Mg Supp.Rect CA 09/08/22 14:50 975 mg STAT ONE Administration Acetaminophen Confirm 09/08/22 14:51 Acetaminophen 650 Mg Supp.Rect Administered 09/08/22 14:52 Dose 1,300 mg .ROUTE .STK-MED ONE Acetaminophen 650 mg 09/08/22 17:01 09/09/22 13:36 Acetaminophen 325 Mg Tablet PO 10/08/22 17:00 650 mg Q4H PRN PRN Administration PAIN AND/OR FEVER Donepezil HCl 10 mg 09/08/22 22:00 09/08/22 23:01 Donepezil Hcl 10 Mg Tablet PO 10/08/22 21:59 10 mg HS KWAKU Administration Enoxaparin Sodium 40 mg 09/08/22 18:00 09/09/22 08:28 Enoxaparin Sodium 40 Mg/0.4 Ml Syringe SQ 10/08/22 17:59 40 mg DAILY KWAKU Administration Hydrochlorothiazide 12.5 mg 09/09/22 10:00 09/09/22 08:28 Hydrochlorothiazide 25 Mg Tablet PO 10/09/22 09:59 12.5 mg DAILY KWAKU Administration Sodium Chloride 1,000 mls @ 999 mls/hr 09/08/22 14:46 09/08/22 15:53 Sodium Chloride 0.9% 1000 Ml IV 09/08/22 15:46 Infused .Q1H1M STA Infusion Sodium Chloride Confirm 09/08/22 14:51 Sodium Chloride 0.9% 1000 Ml Administered 09/08/22 14:52 Dose 1,000 mls @ ud .ROUTE .STK-MED ONE Sodium Chloride 1,000 mls @ 100 mls/hr 09/08/22 17:01 09/09/22 03:36 Sodium Chloride 0.9% 1000 Ml IV 10/08/22 17:00 100 mls/hr .Q10H KWAKU Administration Losartan Potassium 50 mg 09/09/22 10:00 09/09/22 08:28 Losartan Potassium 50 Mg Tablet PO 10/09/22 09:59 50 mg DAILY KWAKU Administration Mirtazapine 45 mg 09/08/22 22:00 09/08/22 23:08 Mirtazapine 15 Mg Tablet PO 10/08/22 21:59 45 mg HS KWAKU Administration Mirtazapine Confirm 09/08/22 23:00 Mirtazapine 30 Mg Tablet Administered 09/08/22 23:01 Dose 60 mg .ROUTE .STK-MED ONE Pantoprazole Sodium 40 mg 09/09/22 10:00 09/09/22 08:28 Protonix (Pantoprazole) 40 Mg Tablet PO 10/09/22 09:59 40 mg BID KWAKU Administration Intake & Output (Last 24 hours) 09/07/22 09/08/22 09/09/22 09/10/22 11:59 11:59 11:59 11:59 Intake Total 2015 480 Output Total 500 Balance 1515 480 Weight 92.7 kg Microbiology Results (Last 24 hours) 09/08/22 14:45 Catherized Urine Culture - Preliminary NO GROWTH TO DATE Laboratory Results (Last 24 hours) 09/09/22 05:30 Sodium 135 L Potassium 3.6 Chloride 102 Carbon Dioxide 29 Anion Gap 7.1 BUN 18 Creatinine 0.90 Estimated GFR > 60.0 Glucose 108 H Calcium 8.0 L Total Bilirubin 0.70 AST 20 ALT 15 Alkaline Phosphatase 45 Serum Total Protein 6.1 L Albumin 3.4 L Orders (Last 24 hours) Category Date Time Status POCT GLUCOSE Stat Lab 09/09/22 07:05 Completed Hydrochlorothiazide 25 mg [hydroDIURIL 25 MG] Med 09/09/22 10:00 Discontinued 12.5 mg PO DAILY Losartan Potassium 50 mg [Cozaar 50 MG] Med 09/09/22 10:00 Discontinued 50 mg PO DAILY PANTOPRAZOLE 40 mg Tablet [Protonix 40MG Tablet] Med 09/09/22 10:00 Discontinued 40 mg PO BID Patient Care Notes (Last 24 hours) 09/09/22 10:40 (created 09/09/22 10:56) Case Management Note by Malathi Gallegos S/W GRANDDAUGHTER MERARY - SHE REPORTS PATIENT'S IS IN ER. SHE REPORTS HER MOTHER ( PATIENT'S DAUGHTER) WILL PICK PATIENT UP AT TIME OF DC AND STAY WITH HIM AT TIME OF DC. SHE REPORTS THEY HAVE SEVERAL FAMILY MEMBERS AVAILABLE TO HELP AND STAY WITH PATIENT IF NEEDED. Initialized on 09/09/22 10:56 - END OF NOTE - Vitals & Intake/Output Vital Signs: Vital Signs Temperature 100.7 F 09/09/22 11:25 Pulse Rate 79 09/09/22 11:25 Respiratory Rate 19 09/09/22 12:00 Blood Pressure 129/60 09/09/22 11:25 O2 Sat by Pulse Oximetry 92 L 09/09/22 11:25 Intake & Output: Intake & Output 09/07/22 09/08/22 09/09/22 09/10/22 11:59 11:59 11:59 11:59 Intake Total 2015 480 Output Total 500 Balance 1515 480 Weight 92.7 kg - Lab Result Diagrams: 09/09/22 05:30 09/09/22 05:30 Lab Results-Last 24 Hrs: Lab Results-Last 24 Hours 09/09/22 Range/Units 05:30 Sodium 135 L (137-145) mmol/L Potassium 3.6 (3.5-5.1) mmol/L Chloride 102 (98-107) mmol/L Carbon Dioxide 29 (22-30) mmol/L Anion Gap 7.1 (5-15) MEQ/L BUN 18 (9-20) mg/dL Creatinine 0.90 (0.66-1.25) mg/dL Estimated GFR > 60.0 ML/MIN Glucose 108 H (74-106) mg/dL Calcium 8.0 L (8.4-10.2) mg/dL Total Bilirubin 0.70 (0.2-1.3) mg/dL AST 20 (17-59) U/L ALT 15 (0-50) U/L Alkaline Phosphatase 45 (38-126) U/L Serum Total Protein 6.1 L (6.3-8.2) g/dL Albumin 3.4 L (3.5-5.0) g/dL Micro Results-Entire Visit: Microbiology 09/08/22 14:45 Urine Culture - Preliminary Catherized NO GROWTH TO DATE - Radiology Exams Ordered Rad Exams-Entire Visit: Radiology Procedures Category Date Time Status CHEST 1 VIEW (PORTABLE) Stat Exams 09/08/22 14:42 Completed HEAD WITHOUT CONTRAST [CT] Stat Exams 09/08/22 14:47 Completed - Procedures and Test Procedures and Tests throughout Hospitalization: Therapy Orders & Screens 09/08/22 17:01 Respiratory Therapy Consult ROUTINE Comment: Reason For Exam: 09/08/22 17:45 Oxygen NASAL CANNULA 2 lpm Comment: Discharge Exam General Appearance: no apparent distress, alert Neurologic Exam: alert, oriented x 3, cooperative, normal mood/affect, nml cerebellar function, sensation nml, No motor deficits Eye Exam: PERRL, EOMI, eyes nml inspection Ears, Nose, Throat Exam: normal ENT inspection, pharynx normal, moist mucous membranes Neck Exam: normal inspection, non-tender, supple, full range of motion Respiratory Exam: normal breath sounds, lungs clear, No respiratory distress Cardiovascular Exam: regular rate/rhythm, normal heart sounds Gastrointestinal/Abdomen Exam: soft, No tenderness, No mass Male Genitalia Exam: deferred Rectal Exam: deferred Back Exam: normal inspection, normal range of motion, No CVA tenderness, No vertebral tenderness Extremity Exam: normal inspection, normal range of motion Skin Exam: normal color, warm, dry Final Diagnosis/Problem List - Final Discharge Diagnosis/Problem (1) AMS (altered mental status) Status: Resolved Code(s): R41.82 - ALTERED MENTAL STATUS, UNSPECIFIED (2) COVID Status: Acute Code(s): U07.1 - COVID-19 (3) Delirium Status: Resolved Code(s): R41.0 - DISORIENTATION, UNSPECIFIED - Discharge Discharge Date: 09/09/22 Disposition: Home, Self-Care Condition: Stable Prescriptions: Continue Mirtazapine 45 mg PO HS Losartan/Hydrochlorothiazide [Hyzaar 50-12.5 Tablet] 1 tab PO DAILY Lansoprazole 30 mg PO BID Donepezil HCl 10 mg [Aricept 10 MG] 10 mg PO HS Instructions: COVID-19 (DC) Follow up with: FEDE LEDBETTER MD [Primary Care Provider] - 09/16/22 1:45 pm ([facility] ) Forms: Discharge Instructions
== END 2022-09-09 13:42 | disposition home or self-care (01) ==
LOC: ED 14:10 → MED SURG 16:40
PROVIDERS: ADMIT General Practice; ATTEND General Practice
DX: R41.82 Altered mental status, unspecified (principal); U07.1 COVID-19; I10 Essential (primary) hypertension; Z79.899 Other long term (current) drug therapy; Z20.828 Contact with and (suspected) exposure to other viral communicable diseases
CPT/HCPCS: 0241U; 36000; 36415; 51702; 70450; 71045; 80053; 81015; 82550; 82947; 83605; 85025; 85379; 87040; 87086; 87651; 93041; 93268; 94760; 96360; 99285; J1650; A9270-GY; G0378

== ENCOUNTER 2024-07-14 10:19 | Emergency (ER) | payer MEDICARE, OTHER ==
--- NOTE | 2024-07-14 10:27 | ERPHSYRPT ---
- History of Present Illness Time Seen by Provider: 07/14/24 10:26 Historian: patient, family Exam Limitations: no limitations Physician History: This is an 83-year-old white male patient of Dr. Ledbetter who arrives to the emergency department by private vehicle escorted by his spouse for constipation symptoms for 1-1/2 weeks. Patient denies nausea vomiting diarrhea. He denies chest pain. He denies shortness of breath. He has no abdominal pain at this time. There is been no new medications. Patient has a history of hypertension, dementia, anxiety, depression. Timing/Duration: week(s) (1.5) Activities at Onset: none Quality: aching Abdominal Pain Onset Location: generalized abdomen Severity of Pain-Max: mild (Moderate) Severity of Pain-Current: none Associated Symptoms: other (Constipation) Previous symptoms: no prior history, no recent treatment Allergies/Adverse Reactions: sulfamethoxazole [From Bactrim] Allergy (Verified 07/14/24 10:33) trimethoprim [From Bactrim] Allergy (Verified 07/14/24 10:33) Home Medications: Donepezil HCl 10 mg [Aricept 10 MG] 5 mg PO HS 09/08/22 [History] Losartan/Hydrochlorothiazide [Hyzaar 50-12.5 Tablet] 2 tab PO DAILY 09/08/22 [History] Mirtazapine 45 mg PO HS 09/08/22 [History] clonazePAM 0.5 mg PO DAILY 07/14/24 [History] Hx Tetanus, Diphtheria Vaccination/Date Given: No Hx Influenza Vaccination/Date Given: No Hx Pneumococcal Vaccination/Date Given: No Travel Risk - Emerging Infectious Disease Are you exhibiting symptoms associated with any current EIDs: No - Review of Systems Constitutional: No Symptoms Eyes: No Symptoms Ears, Nose, & Throat: No Symptoms Respiratory: No Symptoms, No Cough, No Dyspnea Cardiac: No Symptoms, No Chest Pain Abdominal/Gastrointestinal: Abdominal Pain, Constipation, No Nausea (None now), No Vomiting, No Diarrhea Genitourinary Symptoms: No Symptoms Musculoskeletal: No Symptoms Skin: No Symptoms Neurological: No Symptoms Psychological: No Symptoms Endocrine: No Symptoms Hematologic/Lymphatic: No Symptoms Immunological/Allergic: No Symptoms All Other Systems: Reviewed and Negative - Past Medical History Pertinent Past Medical History: Yes (Poor Historian) Neurological History: No Pertinent History ENT History: No Pertinent History Cardiac History: Hypertension Respiratory History: No Pertinent History Endocrine Medical History: No Pertinent History Musculoskeletal History: No Pertinent History GI Medical History: GERD History: No Pertinent History Psycho-Social History: Depression Male Reproductive Disorders: No Pertinent History - Past Surgical History Past Surgical History: Yes (unkown, poor historian) Neuro Surgical History: No Pertinent History Cardiac: No Pertinent History Respiratory: No Pertinent History Gastrointestinal: No Pertinent History, Appendectomy Genitourinary: No Pertinent History Musculoskeletal: No Pertinent History Male Surgical History: No Pertinent History Other Surgical History: Patient unable to communicate history. - Social History Smoking Status: Former smoker Exposure to second hand smoke: No Drug Use: none Patient Lives Alone: No (lives with spouse.) - Nursing Vital Signs Nursing Vital Signs: Initial Vital Signs Temperature 96.4 F 07/14/24 10:24 Pulse Rate 52 L 07/14/24 10:24 Respiratory Rate 20 07/14/24 10:24 Blood Pressure 138/79 07/14/24 10:24 O2 Sat by Pulse Oximetry 96 07/14/24 10:24 Pain Scale Pain Intensity 0 - Physical Exam General Appearance: no apparent distress, alert, anxiety Eye Exam: PERRL/EOMI, eyes nml inspection Ears, Nose, Throat Exam: normal ENT inspection, moist mucous membranes Neck Exam: normal inspection, non-tender, supple, full range of motion Respiratory Exam: normal breath sounds, lungs clear, No chest tenderness, No respiratory distress Cardiovascular Exam: regular rate/rhythm, normal heart sounds, normal peripheral pulses Gastrointestinal/Abdomen Exam: soft, normal bowel sounds, No tenderness, No guarding Rectal Exam: not done Back Exam: normal inspection, normal range of motion, No CVA tenderness, No vertebral tenderness Extremity Exam: normal inspection, normal range of motion, pelvis stable Neurologic Exam: alert, oriented x 3, cooperative, interstate planner II-XII nml as tested, normal mood/affect, nml cerebellar function, nml station & gait, sensation nml Skin Exam: normal color, warm, dry Lymphatic Exam: No adenopathy SpO2 Interpretation: normal O2 Delivery: Room Air - Course Nursing assessment & vital signs reviewed: Yes Ordered Tests: Active Orders 24 hr Category Date Time Status Enema STAT Care 07/14/24 12:20 Active IV Insertion STAT Care 07/14/24 10:39 Active ABDOMEN AND PELVIS W/0 CONTRAS [CT] Stat Exams 07/14/24 10:40 Completed AMYLASE Stat Lab 07/14/24 10:35 Completed CBC W DIFF Stat Lab 07/14/24 10:35 Completed CMP Stat Lab 07/14/24 10:35 Completed CULTURE,URINE Stat Lab 07/14/24 10:46 Received LIPASE Stat Lab 07/14/24 10:35 Completed UA W/RFX UR CULTURE Stat Lab 07/14/24 10:46 Completed Lab/Rad Data: Laboratory Result Diagrams 07/14/24 10:35 07/14/24 10:35 Laboratory Results 07/14/24 07/14/24 07/14/24 Range/Units 10:46 10:35 10:35 WBC 7.8 (4.23-9.07) x10^3/uL RBC 4.95 (4.63-6.08) x10^6/uL Hgb 15.0 (13.7-17.5) g/dL Hct 44.4 (40.1-51.0) % MCV 89.7 (79.0-92.2) fL MCH 30.3 (25.7-32.2) pg MCHC 33.8 (32.3-36.5) g/dL RDW 12.5 (11.6-14.4) % Plt Count 185 (163-337) x10^3/uL MPV 10.4 (9.4-12.4) fL Gran % 53.8 (34.0-67.9) % Immature Gran % (Auto) 0.4 (0.001-0.429) % Nucleat RBC Rel Count 0.0 (0.00-0.2) % Eos # (Auto) 0.19 (0.04-0.54) x10^3/uL Immature Gran # (Auto) 0.03 (0.001-0.031) x10^3u/L Absolute Lymphs (auto) 2.60 (1.32-3.57) x10^3/uL Absolute Monos (auto) 0.71 (0.30-0.82) x10^3/uL Absolute Nucleated RBC 0.00 (0.00-0.012) x10^3u/L Lymphocytes % 33.5 (21.8-53.1) % Monocytes % 9.1 (5.3-12.2) % Eosinophils % 2.4 (0.8-7.0) % Basophils % 0.8 (0.2-1.2) % Absolute Granulocytes 4.17 (1.78-5.38) x10^3/uL Basophils # 0.06 (0.01-0.08) x10^3/uL Sodium 141 (135-145) mmol/L Potassium 3.4 L (3.5-5.1) mmol/L Chloride 101 (98-107) mmol/L Carbon Dioxide 33 H (22-30) mmol/L Anion Gap 10.5 (5-15) MEQ/L BUN 15 (9-20) mg/dL Creatinine 1.08 (0.66-1.25) mg/dL Estimated GFR 68.1 ML/MIN Glucose 106 (74-106) mg/dL Calcium 9.7 (8.4-10.2) mg/dL Total Bilirubin 1.20 (0.2-1.3) mg/dL AST 30 (17-59) U/L ALT 20 (0-50) U/L Alkaline Phosphatase 47 (38-126) U/L Serum Total Protein 7.6 (6.3-8.2) g/dL Albumin 4.6 (3.5-5.0) g/dL Amylase 78 (30-110) U/L Lipase 42 (23-300) U/L Urine Color Yellow (Yellow) Urine Appearance Cloudy A (Clear) Urine pH 6.0 (4.6-8.0) Ur Specific [place] 1.015 (1.005-1.030) Urine Protein Negative (Negative) Urine Glucose (UA) Negative (Negative) mg/dL Urine Ketones Negative (Negative) Urine Blood Negative (Negative) Urine Nitrite Negative (Negative) Urine Bilirubin Negative (Negative) Urine Urobilinogen 0.2 (0.2) mg/dL Ur Leukocyte Esterase Trace A (Negative) U Hyaline Cast (Auto) NONE SEEN (0-2) /LPF Urine Microscopic RBC 0-2 (0-5) /HPF Urine Microscopic WBC 3-5 (0-5) /HPF Ur Epithelial Cells None Seen (None Seen) /HPF Urine Bacteria None Seen (None Seen) /HPF Urine Culture Reflexed YES (NO) - Progress Progress: improved Progress Note: 07/14/24 11:01 My medical decision making and the assignment of moderate complexity to this patient's medical issue today is based on review of the patient's past medical history, review of the patient's medication list, reviewed patient drug allergy list, history present illness and physical findings on examination. The workup in this patient includes it intravenous line placement, infusion of normal saline solution, CBC, CMP, urinalysis, amylase, lipase and CT scan of the abdomen pelvis without contrast. Differential diagnosis includes but is not limited to constipation, electrolyte abnormalities, dehydration, urinary tract infection, bowel obstruction 07/14/24 12:42 I interpreted the patient's laboratory data results. Based on the patient's laboratory data result findings, there are no acute or emergent medical issues. CT scan of the abdomen pelvis was interpreted by the radiologist and I reviewed the impression. Impression states worsening fecal stasis. New rectal fecal impaction. New nonobstructing right renal micro calculi. Enlarged prostate. 07/14/24 13:27 Patient states that he is feeling much better now. He had a moderate response and passage of large stool with the soapsuds enema. Counseled pt/family regarding: lab results, diagnosis, need for follow-up, rad results Medical Desision Making - Independent Historian Additional History obtained from: Spouse - Diagnostic Testing Diagnostic test were ordered, analyzed, and reviewed by me: Yes Radiological Interpretation: Reviewed by me, Teleradiologist Report - Risk of complications Low Risk: Low risk of morbidity from additional dx testing or treatment - Departure Departure Disposition: Home Clinical Impression: Constipation, Fecal impaction Condition: Stable Critical Care Time: No Referrals: FEDE LEDBETTER MD [Primary Care Provider] - Follow up/PCP as directed Additional Instructions: Drink plenty of clear liquids before advancing your diet. May use MiraLAX [id number] product. Follow the directions on the package. If needed, use fleets enemas rectally or glycerin suppositories rectally. Follow the directions on the package of these [id number] products. Call your primary care provider today, 07/14/2024 to make arrangements for follow-up appointment and to be seen in the next 5 to 7 days.
[2024-07-14 10:36] VITALS: TEMP 96.4
[2024-07-14 10:58] LABS: Absolute Neutrophil Ct (ANC) 4.17 x10^3/uL (1.78-5.38); BASOPHIL % 0.8 % (0.2-1.2); Basophil (Absolute #) 0.06 x10^3/uL (0.01-0.08); Eosinophil % 2.4 % (0.8-7.0); Eosinophil (Absolute #) 0.19 x10^3/uL (0.04-0.54); Hematocrit 44.4 % (40.1-51.0); IMMATURE GRAN # 0.03 x10^3u/L (0.001-0.031); IMMATURE GRAN % 0.4 % (0.001-0.429); Lymphocytes % 33.5 % (21.8-53.1); Mean Cell Volume 89.7 fL (79.0-92.2); Mean Corpuscular Hemoglobin 30.3 pg (25.7-32.2); Mean Corpuscular Hgb Concent. 33.8 g/dL (32.3-36.5); Mean Platelet Volume 10.4 fL (9.4-12.4); Monocyte (Absolute #) 0.71 x10^3/uL (0.30-0.82); Monocytes % 9.1 % (5.3-12.2); Neutrophil % 53.8 % (34.0-67.9); Platelet Count 185 x10^3/uL (163-337); Red Blood Count 4.95 x10^6/uL (4.63-6.08); Red Cell Distribution Width 12.5 % (11.6-14.4); White Blood Count 7.8 x10^3/uL (4.23-9.07)
[2024-07-14 11:03] LABS: ALBUMIN 4.6 g/dL (3.5-5.0); ANION GAP 10.5 MEQ/L (5-15); BILIRUBIN,TOTAL 1.2 mg/dL (0.2-1.3); Calcium 9.7 mg/dL (8.4-10.2); Creatinine 1 1.08 mg/dL (0.66-1.25); EST GLOMERULAR FILTRATION RATE 68.1 ML/MIN; Potassium 3.4 mmol/L (3.5-5.1); Total Protein 7.6 g/dL (6.3-8.2)
[2024-07-14 11:23] LABS: Appearance Cloudy (Clear); Bacteria None Seen /HPF (None Seen); Bilirubin Negative (Negative); Blood Negative (Negative); Epithelial Cells None Seen /HPF (None Seen); Glucose, Urine Negative (Negative); Hyaline Casts NONE SEEN /LPF (0-2); Ketones Negative (Negative); Leukocyte Esterase Trace (Negative); Nitrite Negative (Negative); Protein,Urine Dip Negative (Negative); RBC 0-2 /HPF (0-5); Specific Gravity 1.015 (1.005-1.030); Urobilinogen 0.2 mg/dL (0.2)
--- NOTE | 2024-07-14 12:16 | XRAY ---
Indication: Constipation. Abdomen pain. Multiple contiguous axial images obtained through the abdomen and pelvis without contrast. Comparison: September 05, 2014 Lung bases again demonstrates large hiatal hernia with near complete intrathoracic stomach occupying left lung base with subsequent compressive atelectasis. No infiltrate or effusion. Heart not enlarged. Noncontrasted stomach and bowel loops appear nonobstructed. Worsening moderate diffuse scattered colonic fecal debris with now moderate rectal fecal impaction. No free fluid/air. Right lower kidney demonstrates new 2-3 mm nonobstructing calculus. Again incidental tiny hepatic cysts, tiny splenic calcific granulomas, and enlarged prostate gland. Remaining liver, gallbladder, pancreas, spleen, adrenal glands, kidneys, ureters, and bladder are unremarkable for noncontrast exam. Again mild scattered aortoiliac calcifications without AAA. Osseous structures intact again with osteopenia, minimal/mild degenerative changes throughout spine and mild levoscoliosis. Stable small fatty left inguinal hernia. Impression: 1. Worsening moderate diffuse fecal stasis with new rectal fecal impaction. 2. New nonobserved right renal micro-calculus. 3. Again chronic findings including large hiatal hernia with intrathoracic stomach, hepatic cysts, enlarged prostate, arteriosclerotic disease, fatty left inguinal hernia, chronic bony findings, and old granulomatous disease.
[2024-07-14 12:51] VITALS: BP 143/80; PULSE 73; RESP 20; O2SAT 97
== END 2024-07-14 13:39 | disposition home or self-care (01) ==
LOC: ED 10:19
DX: K56.41 Fecal impaction (principal); I10 Essential (primary) hypertension; Z79.899 Other long term (current) drug therapy
CPT/HCPCS: 36000; 36415; 74176; 80053; 81001; 82150; 83690; 85025; 87086; 99283

== ENCOUNTER 2024-08-11 12:40 | Day surgery (SDC) | payer MEDICARE, OTHER ==
[2024-08-11] MEDS ORDERED: Sodium Chloride 0.9(Preservative Free) 10 ML IJ ONE (12:41)
[2024-08-11] MEDS ORDERED: Decadron 4 MG INJ IV ONE (12:41)
[2024-08-11] MEDS ORDERED: DIPRIVAN 200 MG/20 ML IV ONE (13:40)
--- NOTE | 2024-08-11 15:03 | XRAY ---
Indication: Right L4-S1 transforaminal ALEXANDRO. Intraoperative fluoroscopy provided for 24 seconds. 4 digital spot image submitted for interpretation demonstrates posterior needle tips projecting over the expected right L4 and L5 nerve roots. Small amount of contrast injected for needle tip placement. Correlate with intraoperative findings/report.
--- NOTE | 2024-08-11 16:44 | XRAY ---
24 seconds of fluoroscopy was used in surgery for a right L4-S1 transforaminal ALEXANDRO.
== END 2024-08-11 14:05 | disposition home or self-care (01) ==
LOC: SDC-PAIN 12:40
PROVIDERS: ATTEND Psychiatry & Neurology Pain Medicine
DX: M54.16 Radiculopathy, lumbar region (principal)
CPT/HCPCS: 64483; 64484; 72100; 77003; J1100; J2704; Q9966

== ENCOUNTER 2024-09-28 12:54 | Day surgery (SDC) | payer MEDICARE, OTHER ==
[2024-09-28] MEDS ORDERED: Depo-Medrol 40 MG/ML IM ONE (12:55)
[2024-09-28] MEDS ORDERED: Xylocaine-Mpf 2% 5 Ml Vial IJ ONE (12:55)
[2024-09-28] MEDS ORDERED: DIPRIVAN 200 MG/20 ML IV ONE (14:45)
--- NOTE | 2024-09-28 16:52 | XRAY ---
Indication: Bilateral L4-S1 MBB. Intraoperative fluoroscopy provided for 8 seconds. Single digital spot image submitted for interpretation demonstrates posterior needle tips projecting over the expected left and right L4-S1 nerve roots. Correlate with intraoperative findings/report.
--- NOTE | 2024-09-28 17:05 | XRAY ---
8 seconds of fluoroscopy was used in surgery for a bilateral L4-S1 MBB.
== END 2024-09-28 15:25 | disposition home or self-care (01) ==
LOC: SDC-PAIN 12:54
PROVIDERS: ATTEND Psychiatry & Neurology Pain Medicine
DX: M47.816 Spondylosis without myelopathy or radiculopathy, lumbar region (principal)
CPT/HCPCS: 72020; 77002; J2704

== ENCOUNTER 2024-12-31 22:02 | Emergency (ER) | payer MEDICARE, OTHER ==
--- NOTE | 2024-12-31 22:41 | ERPHSYRPT ---
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 He was cough and congestion he was not have any respiratory distress. His says that he has been a little bit more confused than lately. He does have some Alzheimer's but he has had a precipitous decrease in his Mentation and is definitely more confused. She says that he is just not making any sense right now. He is not had any fever or chills. They did notice that he had some hematuria today it was not pure blood that showed us a picture but there was some significant blood in the urine.He does not have any dysuria. He has no fever or chills. Nothing makes the symptoms better or worse.The family is worried about UTI. They say that when he gets UTIs he does get confused. Associated Symptoms: No nausea, No vomiting, No abdominal pain, No shortness of breath, No heartburn Allergies/Adverse Reactions: sulfamethoxazole [From Bactrim] Allergy (Verified 12/31/24 22:25) Hives trimethoprim [From Bactrim] Allergy (Verified 12/31/24 22:25) Hives Home Medications: Donepezil HCl 10 mg [Aricept 10 MG] 5 mg PO HS 09/08/22 [History] Losartan/Hydrochlorothiazide [Hyzaar 50-12.5 Tablet] 1 tab PO DAILY 09/08/22 [History] Mirtazapine 45 mg PO HS 09/08/22 [History] clonazePAM 0.5 mg PO DAILY 07/14/24 [History] Memantine HCl 5 mg PO BID 12/31/24 [History] Hx Tetanus, Diphtheria Vaccination/Date Given: No Hx Influenza Vaccination/Date Given: No Hx Pneumococcal Vaccination/Date Given: No Travel Risk - Emerging Infectious Disease Are you exhibiting symptoms associated with any current EIDs: No - Past Medical History Pertinent Past Medical History: Yes (Poor Historian) Neurological History: No Pertinent History ENT History: No Pertinent History Cardiac History: Hypertension Respiratory History: No Pertinent History Endocrine Medical History: No Pertinent History Musculoskeletal History: No Pertinent History GI Medical History: GERD History: No Pertinent History Psycho-Social History: Depression Male Reproductive Disorders: No Pertinent History - Past Surgical History Past Surgical History: Yes (unkown, poor historian) Neuro Surgical History: No Pertinent History Cardiac: No Pertinent History Respiratory: No Pertinent History Gastrointestinal: No Pertinent History, Appendectomy Genitourinary: No Pertinent History Musculoskeletal: No Pertinent History Male Surgical History: No Pertinent History Other Surgical History: Patient unable to communicate history. - Social History Smoking Status: Former smoker Exposure to second hand smoke: No Drug Use: none Patient Lives Alone: No (lives with spouse.) - Social Determinants of Health Will the patient participate in the screening: Yes Do you worry about a steady place to live?: No In the past 12 months,have you had to go without utilities?: No Transportation Issues: No Has anyone in your support network made you feel unsafe?: No Have you or anyone in your house had to go w/o enough food: No - Nursing Vital Signs Nursing Vital Signs: Initial Vital Signs Temperature 99 F 12/31/24 22:29 Pulse Rate 85 12/31/24 22:29 Respiratory Rate 19 12/31/24 22:29 Blood Pressure 116/94 12/31/24 22:29 O2 Sat by Pulse Oximetry 94 L 12/31/24 22:29 Pain Scale Pain Intensity 0 - Physical Exam General Appearance: no apparent distress Neck Exam: normal inspection Respiratory Exam: normal breath sounds Cardiovascular Exam: regular rate/rhythm Gastrointestinal/Abdomen Exam: soft, normal bowel sounds Back Exam: normal inspection, normal range of motion, CVA tenderness Extremity Exam: normal inspection, normal range of motion Neurologic Exam: alert, cooperative, studio data analyst II-XII nml as tested, confusion Skin Exam: normal color, warm, dry SpO2: 92 O2 Delivery: Room Air Ordered Tests: Active Orders 24 hr Category Date Time Status EKG-ER Only STAT Care 12/31/24 22:34 Active CHEST 1 VIEW (PORTABLE) Stat Exams 12/31/24 22:34 Taken HEAD WITHOUT CONTRAST [CT] Stat Exams 12/31/24 22:59 Completed BLOOD CULTURE Stat Lab 12/31/24 23:00 Received CBC W DIFF Stat Lab 12/31/24 22:55 Completed CMP Stat Lab 12/31/24 22:55 Completed CULTURE,URINE Stat Lab 12/31/24 23:48 Received Lactic Acid Stat Lab 12/31/24 22:35 Completed UA W/RFX UR CULTURE Stat Lab 12/31/24 23:48 Completed Medication Summary Discontinued Medications Generic Name Dose Route Start Last Admin Trade Name Freq PRN Reason Stop Dose Admin Sodium Chloride 1,000 mls @ 999 mls/hr 12/31/24 23:02 01/01/25 00:29 Sodium Chloride 0.9% 1000 Ml IV 01/01/25 00:02 Infused .Q1H1M STA Infusion Sodium Chloride Confirm 12/31/24 23:15 Sodium Chloride 0.9% 1000 Ml Administered 12/31/24 23:16 Dose 1,000 mls @ ud .ROUTE .STK-MED ONE Lab/Rad Data: Laboratory Result Diagrams 12/31/24 22:55 12/31/24 22:55 Laboratory Results 12/31/24 12/31/24 12/31/24 Range/Units 23:48 23:00 22:55 WBC (4.23-9.07) x10^3/uL RBC (4.63-6.08) x10^6/uL Hgb (13.7-17.5) g/dL Hct (40.1-51.0) % MCV (79.0-92.2) fL MCH (25.7-32.2) pg MCHC (32.3-36.5) g/dL RDW (11.6-14.4) % Plt Count (163-337) x10^3/uL MPV (9.4-12.4) fL Gran % (34.0-67.9) % Immature Gran % (Auto) (0.001-0.429) % Nucleat RBC Rel Count (0.00-0.2) % Eos # (Auto) (0.04-0.54) x10^3/uL Immature Gran # (Auto) (0.001-0.031) x10^3u/L Absolute Lymphs (auto) (1.32-3.57) x10^3/uL Absolute Monos (auto) (0.30-0.82) x10^3/uL Absolute Nucleated RBC (0.00-0.012) x10^3u/L Lymphocytes % (21.8-53.1) % Monocytes % (5.3-12.2) % Eosinophils % (0.8-7.0) % Basophils % (0.2-1.2) % Absolute Granulocytes (1.78-5.38) x10^3/uL Basophils # (0.01-0.08) x10^3/uL Sodium 139 (135-145) mmol/L Potassium 3.7 (3.5-5.1) mmol/L Chloride 102 (98-107) mmol/L Carbon Dioxide 27 (22-30) mmol/L Anion Gap 14.1 (5-15) MEQ/L BUN 19 (9-20) mg/dL Creatinine 0.98 (0.66-1.25) mg/dL Estimated GFR 76.0 ML/MIN Glucose 123 H (74-106) mg/dL Lactic Acid (0.4-2.0) Calcium 9.0 (8.4-10.2) mg/dL Total Bilirubin 1.10 (0.2-1.3) mg/dL AST 31 (17-59) U/L ALT 23 (0-50) U/L Alkaline Phosphatase 46 (38-126) U/L Serum Total Protein 7.2 (6.3-8.2) g/dL Albumin 4.4 (3.5-5.0) g/dL Urine Color Dark Yellow (Yellow) Urine Appearance Cloudy A (Clear) Urine pH 6.0 (4.6-8.0) Ur Specific [place] >=1.030 A (1.005-1.030) Urine Protein 30 (Negative) Urine Glucose (UA) Negative (Negative) mg/dL Urine Ketones Trace A (Negative) Urine Blood Large A (Negative) Urine Nitrite Negative (Negative) Urine Bilirubin Small A (Negative) Urine Urobilinogen 1.0 A (0.2) mg/dL Ur Leukocyte Esterase Small A (Negative) U Hyaline Cast (Auto) NONE SEEN (0-2) /LPF Urine Microscopic RBC >100 A (0-5) /HPF Urine Microscopic WBC 6-10 A (0-5) /HPF Ur Epithelial Cells None Seen (None Seen) /HPF Urine Bacteria None Seen (None Seen) /HPF Urine Culture Reflexed YES (NO) Influenza Type A Ag NEGATIVE (NEGATIVE) Influenza Type B Ag NEGATIVE (NEGATIVE) RSV (PCR) POSITIVE A (NEGATIVE) SARS-CoV-2 (PCR) NEGATIVE (NEGATIVE) 12/31/24 12/31/24 Range/Units 22:55 22:35 WBC 9.7 H (4.23-9.07) x10^3/uL RBC 4.58 L (4.63-6.08) x10^6/uL Hgb 14.3 (13.7-17.5) g/dL Hct 41.9 (40.1-51.0) % MCV 91.5 (79.0-92.2) fL MCH 31.2 (25.7-32.2) pg MCHC 34.1 (32.3-36.5) g/dL RDW 12.6 (11.6-14.4) % Plt Count 155 L (163-337) x10^3/uL MPV 10.4 (9.4-12.4) fL Gran % 71.3 H (34.0-67.9) % Immature Gran % (Auto) 0.6 H (0.001-0.429) % Nucleat RBC Rel Count 0.0 (0.00-0.2) % Eos # (Auto) 0.08 (0.04-0.54) x10^3/uL Immature Gran # (Auto) 0.06 H (0.001-0.031) x10^3u/L Absolute Lymphs (auto) 1.66 (1.32-3.57) x10^3/uL Absolute Monos (auto) 0.94 H (0.30-0.82) x10^3/uL Absolute Nucleated RBC 0.00 (0.00-0.012) x10^3u/L Lymphocytes % 17.0 L (21.8-53.1) % Monocytes % 9.7 (5.3-12.2) % Eosinophils % 0.8 (0.8-7.0) % Basophils % 0.6 (0.2-1.2) % Absolute Granulocytes 6.94 H (1.78-5.38) x10^3/uL Basophils # 0.06 (0.01-0.08) x10^3/uL Sodium (135-145) mmol/L Potassium (3.5-5.1) mmol/L Chloride (98-107) mmol/L Carbon Dioxide (22-30) mmol/L Anion Gap (5-15) MEQ/L BUN (9-20) mg/dL Creatinine (0.66-1.25) mg/dL Estimated GFR ML/MIN Glucose (74-106) mg/dL Lactic Acid 0.8 (0.4-2.0) Calcium (8.4-10.2) mg/dL Total Bilirubin (0.2-1.3) mg/dL AST (17-59) U/L ALT (0-50) U/L Alkaline Phosphatase (38-126) U/L Serum Total Protein (6.3-8.2) g/dL Albumin (3.5-5.0) g/dL Urine Color (Yellow) Urine Appearance (Clear) Urine pH (4.6-8.0) Ur Specific [place] (1.005-1.030) Urine Protein (Negative) Urine Glucose (UA) (Negative) mg/dL Urine Ketones (Negative) Urine Blood (Negative) Urine Nitrite (Negative) Urine Bilirubin (Negative) Urine Urobilinogen (0.2) mg/dL Ur Leukocyte Esterase (Negative) U Hyaline Cast (Auto) (0-2) /LPF Urine Microscopic RBC (0-5) /HPF Urine Microscopic WBC (0-5) /HPF Ur Epithelial Cells (None Seen) /HPF Urine Bacteria (None Seen) /HPF Urine Culture Reflexed (NO) Influenza Type A Ag (NEGATIVE) Influenza Type B Ag (NEGATIVE) RSV (PCR) (NEGATIVE) SARS-CoV-2 (PCR) (NEGATIVE) - Progress Progress Note: The patient was stable throughout stay. He was running around 92 on room air. We put him on a liter of oxygen he went up to around 95. He was never in any respiratory distress. He did come back positive for RSV. I got an x-ray of his chest that did not show any acute findings. Head CT was done because of his confusion it showed no intracranial abnormalities either. His CBC and chemistry panel were essentially within normal limits.I spoke to the family while we are waiting on the urinalysis to return. They said that they were fine with him going home. I gave him the option of admission and told him that I thought he was probably stable enough to go home as well 2. We agreed to let him go and th ey will observe him carefully and bring him back if it gets worse.I believe that that he has RSV causing some of his symptoms.They are mild and he is in no respiratory distress. 01/01/25 00:25 Medical Desision Making - Independent Historian Additional History obtained from: Family - Diagnostic Testing Diagnostic test were ordered, analyzed, and reviewed by me: Yes Radiological Interpretation: Interpreted by me - Risk of complications Low Risk: Low risk of morbidity from additional dx testing or treatment - Departure Departure Disposition: Home Clinical Impression: RSV (respiratory syncytial virus infection) Condition: Stable Critical Care Time: No Referrals: CARLOS TORRES [COURTESY STAFF] - Follow up/PCP as directed Instructions: Blood in the urine (hematuria) in adults
[2024-12-31 22:46] VITALS: TEMP 99
[2024-12-31 23:10] LABS: Absolute Neutrophil Ct (ANC) 6.94 x10^3/uL (1.78-5.38); BASOPHIL % 0.6 % (0.2-1.2); Basophil (Absolute #) 0.06 x10^3/uL (0.01-0.08); Eosinophil % 0.8 % (0.8-7.0); Eosinophil (Absolute #) 0.08 x10^3/uL (0.04-0.54); Hematocrit 41.9 % (40.1-51.0); Hemoglobin 14.3 g/dL (13.7-17.5); IMMATURE GRAN # 0.06 x10^3u/L (0.001-0.031); IMMATURE GRAN % 0.6 % (0.001-0.429); Lymphocyte (Absolute #) 1.66 x10^3/uL (1.32-3.57); Mean Cell Volume 91.5 fL (79.0-92.2); Mean Corpuscular Hemoglobin 31.2 pg (25.7-32.2); Mean Corpuscular Hgb Concent. 34.1 g/dL (32.3-36.5); Mean Platelet Volume 10.4 fL (9.4-12.4); Monocyte (Absolute #) 0.94 x10^3/uL (0.30-0.82); Monocytes % 9.7 % (5.3-12.2); Neutrophil % 71.3 % (34.0-67.9); Platelet Count 155 x10^3/uL (163-337); Red Blood Count 4.58 x10^6/uL (4.63-6.08); Red Cell Distribution Width 12.6 % (11.6-14.4); White Blood Count 9.7 x10^3/uL (4.23-9.07)
[2024-12-31] MEDS ORDERED: Sodium Chloride 0.9% 1000 ML 1,000 ML ONE (23:15)
[2024-12-31] MEDS: Sodium Chloride 0.9% 1000 ML 1,000 ML IV STA (23:18)
[2024-12-31 23:25] LABS: ALBUMIN 4.4 g/dL (3.5-5.0); ANION GAP 14.1 MEQ/L (5-15); BILIRUBIN,TOTAL 1.1 mg/dL (0.2-1.3); Creatinine 1 0.98 mg/dL (0.66-1.25); Potassium 3.7 mmol/L (3.5-5.1); Total Protein 7.2 g/dL (6.3-8.2)
[2024-12-31 23:49] LABS: INFLUENZA A NEGATIVE (NEGATIVE); INFLUENZA B NEGATIVE (NEGATIVE); SARS-CoV-2 Xpert Express NEGATIVE (NEGATIVE)
[2024-12-31 23:52] LABS: RESPIRATORY SYNCTIAL VIRUS POSITIVE (NEGATIVE)
--- NOTE | 2025-01-01 00:19 | XRAY ---
CLINICAL HISTORY: confusion COMPARISON: . None TECHNIQUE: Multiple axial images are obtained from the skull base to the vertex without contrast. CT scan was performed according to ALARA (as low as reasonable achievable). FINDINGS: There is cerebral atrophy. No evidence of space occupying lesion, hemorrhage, edema, mass effect, midline shift, extra axial collection, or hydrocephalus is noted. Basal cisterns are symmetric and normal in size and configuration. There are scattered periventricular hypodensities as can be seen with chronic microvascular ischemic changes. The bauman-white matter differentiation is preserved. Visualized paranasal sinuses and mastoid air cells are well aerated. Orbital contents are within normal limits. Bony structures are intact. IMPRESSION: 1. No evidence of acute intracranial abnormality is demonstrated. 2. Chronic microvascular ischemic changes. 3. Cerebral atrophy. Electronically Signed by: Declan Waite MD. (01/01/2025 00:14:11 EDT)
[2025-01-01 00:27] LABS: Appearance Cloudy (Clear); Bacteria None Seen /HPF (None Seen); Bilirubin Small (Negative); Blood Large (Negative); Epithelial Cells None Seen /HPF (None Seen); Glucose, Urine Negative (Negative); Hyaline Casts NONE SEEN /LPF (0-2); Ketones Trace (Negative); Leukocyte Esterase Small (Negative); Nitrite Negative (Negative); Protein,Urine Dip 30 (Negative); RBC >100 /HPF (0-5); Specific Gravity >=1.030 (1.005-1.030)
[2025-01-01 01:02] VITALS: BP 133/110; PULSE 77; RESP 22
[2025-01-01 01:04] VITALS: O2SAT 93
--- NOTE | 2025-01-01 08:11 | XRAY ---
Indication: Cough and congestion. Comparison: August 31, 2022 Portable chest less inflated crowding lung bases. No focal infiltrate, consolidation, or large effusion. Again incidental tiny calcified granulomas. Heart not enlarged. Again large hiatal hernia with intrathoracic stomach and fluid leveling. Bony thorax intact. No acute findings.
== END 2025-01-01 01:22 | disposition home or self-care (01) ==
LOC: ED 22:02
DX: J06.9 Acute upper respiratory infection, unspecified (principal); B97.4 Respiratory syncytial virus as the cause of diseases classified elsewhere; R41.0 Disorientation, unspecified; R05.1 Acute cough; R31.9 Hematuria, unspecified; I10 Essential (primary) hypertension; Z79.899 Other long term (current) drug therapy
CPT/HCPCS: 0241U; 36415; 70450; 71045; 80053; 81001; 83605; 85025; 87040; 87086; 93005; 96360; 99285; 96374; 99284

== ENCOUNTER 2025-09-09 13:08 | Observation (INO) | payer MEDICARE, OTHER ==
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
[2025-09-09 14:45] LABS: BASOPHIL % 0.5 % (0.2-1.2); Basophil (Absolute #) 0.05 x10^3/uL (0.01-0.08); Eosinophil (Absolute #) 0.01 x10^3/uL (0.04-0.54); Hematocrit 44.8 % (40.1-51.0); Hemoglobin 15.3 g/dL (13.7-17.5); IMMATURE GRAN # 0.09 x10^3u/L (0.001-0.031); IMMATURE GRAN % 1.0 % (0.001-0.429); Lymphocyte (Absolute #) 0.77 x10^3/uL (1.32-3.57); Mean Corpuscular Hemoglobin 32.3 pg (25.7-32.2); Mean Corpuscular Hgb Concent. 34.2 g/dL (32.3-36.5); Monocyte (Absolute #) 0.75 x10^3/uL (0.30-0.82); NUCLEATED RBC # 0.00 x10^3u/L (0.00-0.012); NUCLEATED RBC % 0.0 % (0.00-0.2); Platelet Count 157 x10^3/uL (163-337); Red Blood Count 4.73 x10^6/uL (4.63-6.08); White Blood Count 9.4 x10^3/uL (4.23-9.07)
[2025-09-09 14:59] LABS: Glucose, Urine Negative (Negative); Protein,Urine Dip 100 (Negative); WBC 0-2 /HPF (0-5)
[2025-09-09 15:00] LABS: Calcium 9.2 mg/dL (8.4-10.2); Carbon Dioxide 28.0 mmol/L (22-30); Creatinine 1 1.27 mg/dL (0.66-1.25); EST GLOMERULAR FILTRATION RATE 55.4 ML/MIN; Glucose 134.0 mg/dL (74-106); Potassium 3.3 mmol/L (3.5-5.1); SGOT/AST 59.0 U/L (17-59); SGPT/ALT 25.0 U/L (0-50); Total Protein 7.8 g/dL (6.3-8.2)
--- NOTE | 2025-09-09 15:12 | XRAY ---
CLINICAL HISTORY: Fall injury/confusion COMPARISON: No previous studies are available for comparison. TECHNIQUE: A CT scan of the cervical spine was performed without the administration of intravenous contrast. Contiguous axial images were obtained from the skull base to the upper thoracic spine. Coronal and sagittal reformatted images were also reviewed. One of the following dose-reduction techniques was utilized for this exam: automated exposure control, adjustment of the mA and/or kV according to patient size, and use of iterative reconstruction. FINDINGS: Vertebrae: There is a relatively straightened cervical curve. The vertebral bodies are normal in height. No evidence of acute fracture or dislocation. There are cervical spondylotic changes with osteophyte formations. The cortical and trabecular bone patterns are normal. No signs of lytic or sclerotic lesions. There is a normal configuration of the posterior elements. Intervertebral Discs: Multilevel disc space narrowing is noted. Multilevel degenerated discs with vacuum phenomena are present. Facet Joints: There is multilevel facet joint arthropathy. Neural Foramina: Multilevel neural foramina narrowing is present. Prevertebral Soft Tissues: The prevertebral soft tissues are normal in thickness without evidence of mass or abnormal fluid collection. Additional Findings: No other significant findings are noted in the visualized soft tissue structures or bony elements. IMPRESSION: 1. No evidence of acute fracture or dislocation. 2. Cervical spondylotic changes. 3. Multilevel disc space narrowing with multilevel degenerated discs with vacuum phenomena and multilevel neural foramina narrowing. 4. Relatively straightened cervical curve, likely due to muscle spasm. 5. MRI correlation is advised. Electronically Signed by: Michael Arriaga MD. (09/09/2025 15:10:14 EST)
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
[2025-09-09 15:27] LABS: INFLUENZA A POSITIVE (NEGATIVE); INFLUENZA B NEGATIVE (NEGATIVE); RESPIRATORY SYNCTIAL VIRUS NEGATIVE (NEGATIVE); SARS-CoV-2 Xpert Express NEGATIVE (NEGATIVE)
[2025-09-09] MEDS ORDERED: Tamiflu 75MG Capsule PO ONE (16:45)
[2025-09-09] MEDS ORDERED: TYLENOL 325 MG ONE (16:46)
[2025-09-09] MEDS ORDERED: ROCEPHIN 1 GM / 100 ML NaCl 1 GM/100 ML IVPB IV ONE (16:46)
[2025-09-09] MEDS: Tamiflu 75MG Capsule PO ONE (16:47)
[2025-09-09] MEDS: TYLENOL 325 MG PO ONE (16:47)
[2025-09-09] MEDS: ROCEPHIN 1 GM / 100 ML NaCl 1 GM/100 ML IVPB IV ONE (16:48)
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
[2025-09-09] MEDS ORDERED: DUONEB 0.5-3 MG/3 ml Neb IH PRN (18:21)
[2025-09-09] MEDS: POTASSIUM CHLORIDE 20 mEq IN WATER 100ML 20 MEQ/100 ML BAG IV ONE (19:49)
--- NOTE | 2025-09-09 20:52 | XRAY ---
Indication: Cough. Comparison: December 31, 2024 Portable chest again hyperinflated with large hiatal hernia and intrathoracic stomach occupying left lung base with adjacent compressive atelectasis. No focal infiltrate, consolidation, or large effusion. Heart not enlarged. Bony thorax intact again with osteopenia. Impression: Continued nonacute chest with chronic features.
[2025-09-09] MEDS ORDERED: NON-FORMULARY ITEM (Clonazepam [Clonazepam] 0.5 MG Tab.Rapdis) PO SCH (22:00)
[2025-09-09] MEDS ORDERED: MIRTAZAPINE 45 MG PO SCH (22:00)
[2025-09-09] MEDS ORDERED: OSELTAMIVIR PHOSPHATE 30 MG CAP PO SCH (22:00)
[2025-09-09] MEDS ORDERED: NON-FORMULARY ITEM (Memantine Hcl [Memantine Hcl] 10 MG Tablet) PO SCH (22:00)
[2025-09-09] MEDS: Tamiflu 75MG Capsule PO SCH (22:06)
[2025-09-09] MEDS: HEPARIN 5000 UNITS/0.5 ML (HIGH RISK MED) SQ SCH (22:06)
[2025-09-09] MEDS: Namenda 5 MG PO SCH (22:06)
[2025-09-09] MEDS: REMERON 30 MG PO SCH (22:06)
[2025-09-10] MEDS: POTASSIUM CHLORIDE 20 mEq IN WATER 100ML 20 MEQ/100 ML BAG IV SCH (01:05)
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
[2025-09-10 06:08] LABS: BASOPHIL % 0.5 % (0.2-1.2); Basophil (Absolute #) 0.03 x10^3/uL (0.01-0.08); Eosinophil (Absolute #) 0.01 x10^3/uL (0.04-0.54); Hematocrit 42.9 % (40.1-51.0); Hemoglobin 13.8 g/dL (13.7-17.5); IMMATURE GRAN # 0.04 x10^3u/L (0.001-0.031); IMMATURE GRAN % 0.7 % (0.001-0.429); Lymphocyte (Absolute #) 1.19 x10^3/uL (1.32-3.57); Mean Corpuscular Hemoglobin 30.8 pg (25.7-32.2); Mean Corpuscular Hgb Concent. 32.2 g/dL (32.3-36.5); Monocyte (Absolute #) 0.64 x10^3/uL (0.30-0.82); NUCLEATED RBC # 0.00 x10^3u/L (0.00-0.012); NUCLEATED RBC % 0.0 % (0.00-0.2); Platelet Count 132 x10^3/uL (163-337); Red Blood Count 4.48 x10^6/uL (4.63-6.08); White Blood Count 5.7 x10^3/uL (4.23-9.07)
[2025-09-10 06:42] LABS: Calcium 8.5 mg/dL (8.4-10.2); Carbon Dioxide 29.0 mmol/L (22-30); Creatinine 1 1.03 mg/dL (0.66-1.25); EST GLOMERULAR FILTRATION RATE 71.2 ML/MIN; Glucose 106.0 mg/dL (74-106); NT PRO BNPII 596.0 pg/mL (<300); Potassium 3.6 mmol/L (3.5-5.1); SGOT/AST 153.0 U/L (17-59); SGPT/ALT 38.0 U/L (0-50); Total Protein 6.6 g/dL (6.3-8.2)
[2025-09-10] MEDS: Aricept 10 MG PO SCH (08:46)
[2025-09-10] MEDS: ROCEPHIN 1 GM / 100 ML NaCl 1 GM/100 ML IVPB IV SCH (08:46)
[2025-09-10] MEDS: Cozaar 50 MG PO SCH (08:47)
[2025-09-10] MEDS: OSELTAMIVIR PHOSPHATE 30 MG CAP PO SCH (08:47)
[2025-09-10] MEDS: Klor Con PO SCH (08:49)
[2025-09-10] MEDS ORDERED: OSELTAMIVIR PHOSPHATE 30 MG CAP PO SCH (10:00)
[2025-09-10] MEDS ORDERED: NON-FORMULARY ITEM (Donepezil Hcl [Aricept] 5 MG Tablet) PO SCH (10:00)
[2025-09-10] MEDS: TYLENOL 325 MG PO PRN (21:24)
[2025-09-11] MEDS: hydroDIURIL 25 MG PO SCH (09:35)
[2025-09-11 12:02] VITALS: BP 139/70; PULSE 83; RESP 16; TEMP 98.7; O2SAT 94
[2025-09-11] MEDS: Miralax Powder 17GM PACKET PO SCH (13:51)
--- NOTE | 2025-09-11 15:07 | PCM.DS ---
Discharge Summary Date of Admission: 09/09/25 17:33 Date of Discharge: 09/11/25 Admitting Physician: FRANCISCO RANDLE MD Primary Care Provider: KHLOE,FEDE Allergies Allergies sulfamethoxazole [From Bactrim] Allergy (Verified 09/09/25 19:32) Hives trimethoprim [From Bactrim] Allergy (Verified 09/09/25 19:32) [facility] Summary - Hospital Course Hospital Course: is a An 85-year-old male with dementia and depression was admitted on 09/09/25 after EMS transport for progressive weakness, dyspnea, fever, and acute confusion following a fall at home. He was febrile and tachycardic on arrival, with labs showing mild leukocytosis, hypokalemia, and acute kidney injury. Rapid PCR was positive for influenza A. Imaging revealed chronic cervical and facial degenerative changes with stable metallic fragments, but no acute intracranial or facial fractures. He was treated with IV fluids, ceftriaxone, oseltamivir, and acetaminophen. By 09/10, he was more alert, with resolution of hypokalemia and OSEI, and continued on IV antibiotics. On 09/11, he reported feeling well without symptoms, remained afebrile aside from a low-grade temperature overnight, and was stable on room air with oxygen saturation of 95%. Labs were overall nonconcerning, urine culture was negative, and constipation was managed with MiraLAX. PT evaluation determined he was safe for discharge home with home health care, and case management arranged follow-up. Blood cultures remain pending for outpatient follow-up. He is being discharged in stable condition with improved hydration, resolved electrolyte abnormalities, and continued antibiotic for sinusitis. - Vitals & Intake/Output Vital Signs: Vital Signs Temperature 98.7 F 09/11/25 12:00 Pulse Rate 83 09/11/25 12:00 Respiratory Rate 16 09/11/25 12:00 Blood Pressure 139/70 09/11/25 12:00 O2 Sat by Pulse Oximetry 94 L 09/11/25 12:00 Intake & Output: Intake & Output 09/09/25 09/10/25 09/11/25 09/12/25 11:59 11:59 11:59 11:59 Intake Total 1523 960 380 Output Total 500 Balance 1523 460 380 Weight 98.1 kg 98 kg - Lab Result Diagrams: 09/10/25 05:40 09/10/25 05:40 Micro Results-Entire Visit: Microbiology 09/09/25 14:44 Urine Culture - Final Catherized NO GROWTH 09/09/25 14:40 Blood Culture - Preliminary Blood 09/09/25 14:30 Blood Culture - Preliminary Blood - Procedures and Test Procedures and Tests throughout Hospitalization: Therapy Orders & Screens 09/09/25 18:21 PT Eval & Treat (MD Order) ONCE Reason for Eval:: weakness Diagnosis: confusion/weakness OT Eval and Treat (MD Order) ONCE Comment: Physician Instructions: Reason For Exam: Diagnosis: confusion/weakness 09/09/25 18:30 Respiratory Therapy Consult ONCE Comment: Reason For Exam: Diagnosis: confusion/weakness 09/10/25 01:34 Oxygen Nasal Cannula 2 lpm Comment: Diagnosis: confusion/weakness 09/10/25 03:16 Respiratory Therapy Assessment DAILY Comment: Diagnosis: confusion/weakness 09/11/25 09:54 RT Miscellaneous Order ROUTINE Comment: Physician Instructions: Reason For Exam: wean oxygen- baseline room air Diagnosis: confusion/weakness Discharge Exam General Appearance: no apparent distress, alert Neurologic Exam: alert, oriented x 3, cooperative, normal mood/affect, nml cerebellar function, sensation nml, No motor deficits Eye Exam: PERRL, EOMI, eyes nml inspection Ears, Nose, Throat Exam: normal ENT inspection, pharynx normal, moist mucous membranes Neck Exam: normal inspection, non-tender, supple, full range of motion Respiratory Exam: normal breath sounds, lungs clear, No respiratory distress Cardiovascular Exam: regular rate/rhythm, normal heart sounds Gastrointestinal/Abdomen Exam: soft, No tenderness, No mass Male Genitalia Exam: deferred Rectal Exam: deferred Back Exam: normal inspection, normal range of motion, No CVA tenderness, No vertebral tenderness Extremity Exam: normal inspection, normal range of motion Skin Exam: normal color, warm, dry Final Diagnosis/Problem List - Final Discharge Diagnosis/Problem (1) Influenza A Current Visit: Yes Status: Acute Assessment & Plan: - Tamiflu - Tylenol/IBP PRN Code(s): J10.1 - FLU DUE TO OTH IDENT INFLUENZA VIRUS W OTH RESP MANIFEST (2) Anxiety Current Visit: Yes Status: Chronic Assessment & Plan: - Per family he is too drowsy on Klonopin at home and will no longer be taking this medication they are wanting something else to DC home with. - Unable to give RX for hydroxyzine d/t interactions with home meds Code(s): F41.9 - ANXIETY DISORDER, UNSPECIFIED (3) Hematuria Current Visit: Yes Status: Acute Assessment & Plan: - X1 episode - was cathed on admission for UA sample Code(s): R31.9 - HEMATURIA, UNSPECIFIED (4) Obesity (BMI 30.0-34.9) Current Visit: Yes Status: Chronic Assessment & Plan: - advised diet and exercise control Code(s): E66.811 - OBESITY, CLASS 1 (5) Acute metabolic encephalopathy Current Visit: Yes Status: Resolved Assessment & Plan: - resolved Code(s): G93.41 - METABOLIC ENCEPHALOPATHY (6) Dementia Current Visit: Yes Status: Acute Assessment & Plan: - Chronic - Home with [facility] Code(s): F03.90 - UNSP DEMENTIA, UNSP SEVERITY, WITHOUT BEH/PSYCH/MOOD/ANX (7) Fall Current Visit: Yes Status: Acute Assessment & Plan: - Radiology records reviewed Code(s): W19.XXXA - UNSPECIFIED FALL, INITIAL ENCOUNTER (8) Fever Current Visit: Yes Status: Resolved Assessment & Plan: - Resolved today - Tylenol/IBP PRN Code(s): R50.9 - FEVER, UNSPECIFIED (9) Hypokalemia Current Visit: Yes Status: Resolved Assessment & Plan: - Resolved Code(s): E87.6 - HYPOKALEMIA (10) Retained magnetic metal fragments Current Visit: Yes Status: Acute Assessment & Plan: - As seen on CT- Pt aware of findings Code(s): Z18.11 - RETAINED MAGNETIC METAL FRAGMENTS (11) Weakness Current Visit: Yes Status: Acute Assessment & Plan: - PT eval- OK to d/c with [facility] Code(s): R53.1 - WEAKNESS (12) OSEI (acute kidney injury) Current Visit: Yes Status: Resolved Assessment & Plan: - resolved - CMP reviewed Code(s): N17.9 - ACUTE KIDNEY FAILURE, UNSPECIFIED (13) UTI (urinary tract infection) Current Visit: Yes Status: Resolved Assessment & Plan: - UC negative Code(s): N39.0 - URINARY TRACT INFECTION, SITE NOT SPECIFIED (14) Constipation Current Visit: Yes Status: Acute Assessment & Plan: - Miralax Code(s): K59.00 - CONSTIPATION, UNSPECIFIED (15) Depression Current Visit: Yes Status: Acute Assessment & Plan: - Continue home meds D/C plan of care time: > 50- minutes Will follow [facility] X2 OP Code(s): F32.A - DEPRESSION, UNSPECIFIED - Discharge Discharge Date: 09/11/25 Disposition: Home, Self-Care Condition: Fair Prescriptions: Continue Mirtazapine 45 mg PO HS Losartan Potassium 50 mg [Cozaar 50 MG] 50 mg PO DAILY Hydrochlorothiazide 25 mg [hydroDIURIL 25 MG] 25 mg PO DAILY Donepezil HCl [Aricept] 5 mg PO DAILY Memantine HCl 10 mg PO BID Discontinued clonazePAM [Clonazepam] 0.5 mg PO HS Additional Instructions: [facility] WILL DELIVER YOUR WALKER TO YOUR HOME- YOU CAN FOLLOW UP WITH THEM AT [phone] [facility] HAS BEEN SET UP FOR YOU. THEY WILL CALL YOU TO ARRANGE A TIME TO COME SEE YOU. THEIR PHONE NUMBER IS [phone] IF YOU NEED ANYTHING PRIOR TO THEIR VISIT Follow up with: SONIA BURDICK MD [ACTIVE STAFF, FAMILY PRACTICE] - 09/25/25 2:00 pm
== END 2025-09-11 15:57 | disposition home health service (06) ==
LOC: ED 13:08 → MED SURG 17:33
PROVIDERS: ADMIT Internal Medicine; ATTEND Internal Medicine
DX: J10.1 Influenza due to other identified influenza virus with other respiratory manifestations (principal); F41.9 Anxiety disorder, unspecified; R31.9 Hematuria, unspecified; E66.811 Obesity, class 1; G93.41 Metabolic encephalopathy; F03.90 Unspecified dementia, unspecified severity, without behavioral disturbance, psychotic disturbance, mood disturbance, and anxiety; W19.XXXA Unspecified fall, initial encounter; R50.9 Fever, unspecified; E87.6 Hypokalemia; Z18.11 Retained magnetic metal fragments; R53.1 Weakness; N17.9 Acute kidney failure, unspecified; N39.0 Urinary tract infection, site not specified; K59.00 Constipation, unspecified; F32.A Depression, unspecified; I10 Essential (primary) hypertension; D72.829 Elevated white blood cell count, unspecified; R60.0 Localized edema; Z79.899 Other long term (current) drug therapy